=== PATIENT | female | born 1985 | race Hispanic/Latino ===

== ENCOUNTER 2019-09-21 14:02 | Emergency (ER) | payer OTHER, SELFPAY ==
[2019-09-22 12:08] LABS: SARS-CoV-2 MS2 Positive; SARS-CoV-2 N Gene Positive; SARS-CoV-2 S Gene Positive; SARS-CoV-2 orf1ab Positive
== END 2019-09-21 14:30 | disposition home or self-care (01) ==
LOC: ERS 14:02
DX: U07.1 COVID-19 (principal)
CPT/HCPCS: 87635; U0003

== ENCOUNTER 2019-10-14 15:15 | Emergency (ER) | payer SELFPAY ==
[2019-10-14 16:43] LABS: #Eosinphils 0.2 thou/uL (0.0-0.7); #Lymphocytes 1.9 thou/uL (1.20-3.40); #Monocytes 0.4 thou/uL (0.11-0.59); #Neutrophils 4.8 thou/uL (1.40-6.50); %Basophils 0.5 % (0.0-1.0); %Eosinophils 2.2 % (0.0-10.0); %Lymphocytes 26.1 % (21.0-51.0); %Monocytes 5.5 % (0.0-10.0); %Neutrophils 65.8 % (42.0-75.0); Hemoglobin 10.4 g/dL (12.0-16.0); Mean Corpuscular HGB CONC 35.3 g/dL (32.0-36.0); Mean Corpuscular Volume 84.8 fL (78.0-98.0); Mean Platelet Volume 8.9 fL (7.4-10.4); Platelet Count 213 thou/uL (130-400); RBC Distribution Width 13.6 % (11.5-14.5); Red Blood Cell (RBC) Count 3.47 mill/uL (4.20-5.40); White Blood Cell (WBC) Count 7.3 thou/uL (4.8-10.8)
[2019-10-14 17:17] LABS: Albumin 4.5 g/dL (3.5-5.0); Alkaline Phosphatase 63 U/L (40-110); Anion Gap 13 mmol/L (10-20); BUN (Urea Nitrogen) 15 mg/dL (7.0-18.7); Bilirubin, Total 0.5 mg/dL (0.2-1.2); Calc. Creatinine Clearance 0 mL/min (70-130); Calcium 9.3 mg/dL (7.8-10.44); Carbon Dioxide 23 mmol/L (22-29); Chloride 102 mmol/L (98-107); Estimated GFR-MDRD 87; Globulin 6.8 g/dL (2.4-3.5); Glucose 89 mg/dL (70-105); Lipase 138 U/L (8-78); Potassium 3.9 mmol/L (3.5-5.1); Protein, Total 11.3 g/dL (6.0-8.3); Sodium 134 mmol/L (136-145)
[2019-10-14 17:55] LABS: ALT (SGPT) 23 U/L (8-55); AST (SGOT) 25 U/L (5-34)
[2019-10-14] MEDS ORDERED: HYDROcodone/Acetaminophen 5/325 mg Tablet ONE (18:07)
[2019-10-14] MEDS ORDERED: Ketorolac Tromethamine 30 MG/ML VIAL ONE (18:07)
[2019-10-14 18:37] LABS: Bilirubin Negative (Negative); Blood, Urine Large (Negative); Glucose, Urine (Dipstick) Negative (Negative); Ketone, Urine Negative (Negative); Leukocyte Negative (Negative); Nitrite Negative (Negative); Protein, Urine (Dipstick) Negative (Neg-Trace); Specific Gravity, Urine 1.025 (1.005-1.030)
[2019-10-14 18:38] LABS: Clarity Hazy (Clear)
[2019-10-14 18:55] LABS: WBC/HPF 0-3 HPF (0-3)
[2019-10-14 18:56] LABS: Bacteria/HPF None Seen HPF (None Seen); Squamous Epithelial 0-3 HPF (0-3)
--- NOTE | 2019-10-14 19:01 | ULT ---
EXAM: US Gallbladder RUQ CLINICAL HISTORY: Epigastric abdominal pain. Pancreatitis.. COMPARISON: None. FINDINGS: Pancreas: The head and proximal pancreatic body have a normal echotexture Liver:Hepatic parenchyma has a normal echotexture. No hepatic masses or intrahepatic biliary dilatati on. Right hepatic lobe: 15.8 cm Gallbladder: Echogenic material within the lumen of the gallbladder, compatible with sludge. Gallblad zay wall is not thickened. No pericholecystic fluid Gil's sign:Negative Portal Vein: Patent. Appropriate directional flow Bile ducts: 0.5 cm common bile duct diameter Right kidney: No hydronephrosis. Right kidney measures 11.7 cm in length. IMPRESSION: 1. Normal echotexture of the visualized pancreatic parenchyma 2. Sludge within the lumen of the gallbladder. No sonographic evidence of cholecystitis.
[2019-10-14 19:09] LABS: BHCG - Serum Negative (NEGATIVE); Pregs Control Background? CLEAR/WHITE (CLR/WHITE); Pregs Control Bar Appear? YES (CONTROL BAR)
== END 2019-10-14 19:45 | disposition home or self-care (01) ==
LOC: ERS 15:15
DX: R10.13 Epigastric pain (principal); R10.12 Left upper quadrant pain
CPT/HCPCS: 36415; 76705; 80053; 81003; 81015; 83605; 83690; 84703; 85025; 96372; J1885

== ENCOUNTER 2019-10-14 20:12 | Inpatient (IN) | payer OTHER, SELFPAY ==
[~2019-10-14 20:12] MED LIST: Iopamidol-370 76% 500 ML 1 ML ONE
[2019-10-14] MEDS ORDERED: Ondansetron PF 4 MG/2 ML Vial ONE (21:52)
--- NOTE | 2019-10-14 22:07 | CT ---
EXAM: CT ABDOMEN AND PELVIS HISTORY: Left upper quadrant pain. History of pancreatitis. COMPARISON: None. Procedure: Multiple contiguous axial images were obtained and a CT of the abdomen and pelvis with IV contrast. C oronal reformats were performed. FINDINGS: Lower Chest: Minimal peripheral groundglass opacities, nonspecific. Correlate for COVID 19. Calcified granuloma in the left lower lobe. Vessels: Normal caliber aorta Heart: Normal heart size Abdomen: Portal vein:Patent Gallbladder: No calcified gallstones. Normal caliber wall. Liver: Diffuse hypoattenuation suggesting hepatic steatosis. Pancreas: There is mild edematous change about the pancreas with peripancreatic fluid and fat strandi ng. Spleen: within normal limits. Adrenals: within normal limits. Kidneys: Symmetric enhancement. No obstructive uropathy. Peritoneum: Small amount of free fluid in the right paracolic gutter and in the peripancreatic mesent darion. Bowel: Limited evaluation by the lack of oral contrast. Short segment fluid-filled loops of small bow el are identified. Correlate for possible developing ileus. Normal ileocecal junction. Surgically absent appendix. Decompressed colon with fecal material. Occasional diverticulum. No diverticulitis. Mesentery and Retroperitoneum: No enlarged mesenteric or retroperitoneal lymph nodes. Abdominal Wall: within normal limits. Pelvis: Reproductive Organs: Uterus has a normal attenuation in appearance. There are multiple hypodensities in the left and right adnexa. Correlate for hydrosalpinx versus tubo-ovarian abscess. There is fluid in the endometrium. Pelvis: No mass, lymphadenopathy, free air or free fluid. Bladder: No bladder abnormality. Bones: within normal limits. IMPRESSION: 1. Inflammatory changes in the peripancreatic region along with mild edematous change of the pancreat ic parenchyma. Correlate for pancreatitis. 2. Serpiginous hypodensity in the left or right adnexa which may represent hydrosalpinx versus tubo-o varian abscesses. Correlate clinically.
[2019-10-14] MEDS ORDERED: Glycopyrrolate 0.2 MG/ML 5 ML SYRINGE SLOW IVP SCH (22:15)
[2019-10-15] MEDS ORDERED: Morphine 4 MG/ML VIAL ONE ×2 (00:06→04:02)
[2019-10-15] MEDS ORDERED: D5 1/2 NS w/20 mEq KCL 1,000 ML IV PRN (03:18)
[2019-10-15] MEDS ORDERED: HYDROcodone/Acetaminophen 7.5/325 mg Tablet PO PRN (03:18)
[2019-10-15] MEDS ORDERED: Sodium Chloride 0.9% 1,000 ML IV PRN ×4 (03:18)
[2019-10-15] MEDS ORDERED: Calcium Carbonate 500 MG ChewTAB PO PRN (03:18)
[2019-10-15] MEDS ORDERED: Morphine 2 MG/ML VIAL SLOW IVP PRN (03:18)
[2019-10-15] MEDS ORDERED: Electrolyte Replacement Protocol IVPB SCH (03:18)
[2019-10-15] MEDS ORDERED: Acetaminophen 650 MG Suppository PR PRN (03:18)
[2019-10-15] MEDS ORDERED: NS 0.9% w/ 20 MEQ KCL 1,000 ML IV PRN ×2 (03:18)
[2019-10-15] MEDS ORDERED: Dextrose 5 %-0.45 % NaCl 1,000 ML IV PRN (03:18)
[2019-10-15] MEDS ORDERED: Ondansetron ODT 4 MG TAB PO PRN (03:18)
--- NOTE | 2019-10-15 03:23 | PDOC.HHP ---
Hospitalist HPI - History of Present Illness n/v abd pain History of Present Illness: Case of an 34y/o female with pmhx of familial hypertriglycemia who comes to hospital due to nausea / vomiting and abd pain. patient states she was on her usual state of health until today when she started with symptoms and decided to come to hospital for evaluation. she was evaluated in the morning and sent home , comes back again with intractable vomiting nausea and pain, abd ct sent consistent with acute pancreatitis, hospitalist was called for further evaluation and management. patient refers pain is 10/10 constant that radiates to her back Hospitalist ROS - Review of Systems All other systems reviewed; all pertinent +/- noted in HPI/Subj Hospitalist History - Past Surgical History Past Surgical History: reports: Hysterectomy (partial) - Family History Family History: reports: hyperlipidemia - Social History Smoking Status: Never smoker Alcohol: reports: None Drugs: reports: none Living Situation: With Family - Exam General Appearance: ill appearing Eye: PERRL, anicteric sclera ENT: normocephalic atraumatic, no oropharyngeal lesions Neck: supple, symmetric, no JVD Heart: RRR, no murmur, no gallops Respiratory: CTAB, no wheezes, no rales Gastrointestinal: soft, non-distended, normal bowel sounds, tender to palpation Extremities: no cyanosis, no clubbing, no edema Skin: normal turgor, no lesions, no rashes Neurological: cranial nerve grossly intact, normal sensation to touch Musculoskeletal: normal tone, normal strength, no muscle wasting Psychiatric: normal affect, normal behavior, A&O x 3 Hospitalist Results - Radiology Interpretation CT scan - abdomen Additional Comment: acute pancreatitis Hospitalist H&P A/P - Problem (1) Acute pancreatitis Code(s): K85.90 - ACUTE PANCREATITIS WITHOUT NECROSIS OR INFECTION, UNSP Status: Acute (2) Hypertriglyceridemia, familial Code(s): E78.1 - PURE HYPERGLYCERIDEMIA Status: Acute (3) Nausea & vomiting Code(s): R11.2 - NAUSEA WITH VOMITING, UNSPECIFIED Status: Acute (4) Intractable abdominal pain Code(s): R10.9 - UNSPECIFIED ABDOMINAL PAIN Status: Acute - Plan Plan: 34 y/o female with pmhx of familial hypertryglecemia who comes with acute pancreatitis, tryglycerides in the 3k acute pancreatitis - seems to be secondary to triglycerides - get ruq u/s, r/o gallstones - iv hydration - insulin drip to break down triglycerides - pain management - f/u lipid panel in am - pt only on omega 3, would likely benefit from statin, zetia tx at discharge - symptomatic tx for n/v - npo
[2019-10-15] MEDS ORDERED: HUMULIN R 100 UNITS in Sodium Chloride 0.9% 100 ML IVPB SCH (03:30)
[2019-10-15] MEDS: Morphine 4 MG/ML VIAL SLOW IVP PRN ×6 (05:23→17:42)
[2019-10-15] MEDS: Sodium Chloride 0.9% 1,000 ML IV SCH ×4 (05:25→22:00)
[2019-10-15 07:00] LABS: Hemoglobin 11.8 g/dL (12.0-16.0); Mean Corpuscular HGB CONC 37.3 g/dL (32.0-36.0); Mean Corpuscular Volume 83.2 fL (78.0-98.0); Mean Platelet Volume 9.2 fL (7.4-10.4); Platelet Count 157 thou/uL (130-400); Red Blood Cell (RBC) Count 3.79 mill/uL (4.20-5.40); White Blood Cell (WBC) Count 10.3 thou/uL (4.8-10.8)
[2019-10-15 07:04] LABS: Band 13 % (5-11); Lymphocytes 9 % (21-51); MDiff Complete? YES; Monocytes 6 % (0-10); Neutrophil 72 % (42-75); Platelet Morphology Comment Appears Adequate; Polychromasia SLIGHT = 2-3 cells (100X) (0-2/hpf)
[2019-10-15 07:06] LABS: ALT (SGPT) 18 U/L (8-55); AST (SGOT) 26 U/L (5-34); Albumin 3.7 g/dL (3.5-5.0); Alkaline Phosphatase 56 U/L (40-110); Anion Gap 13 mmol/L (10-20); BUN (Urea Nitrogen) 10 mg/dL (7.0-18.7); Bilirubin, Total 0.5 mg/dL (0.2-1.2); Calc. Creatinine Clearance 133 mL/min (70-130); Calcium 7.5 mg/dL (7.8-10.44); Carbon Dioxide 17 mmol/L (22-29); Chloride 104 mmol/L (98-107); Cholesterol 322 mg/dl (< 200 Desired); Estimated GFR-MDRD Greater than 90; Globulin 4.7 g/dL (2.4-3.5); Glucose 154 mg/dL (70-105); HDL Cholesterol 14 mg/dL (>60 Neg Risk); Lipase 331 U/L (8-78); Potassium 3.8 mmol/L (3.5-5.1); Protein, Total 8.4 g/dL (6.0-8.3); Sodium 130 mmol/L (136-145); Triglycerides Greater than 950 mg/dL (Less than 150)
[2019-10-15] MEDS: Enoxaparin Sodium 40 MG/0.4 ML SYRINGE SC SCH (07:35)
[2019-10-15] MEDS: Famotidine/PF 20 mg/2ml Vial SLOW IVP SCH ×3 (07:37→22:00)
--- NOTE | 2019-10-15 08:06 | ULT ---
Exam: Right upper quadrant ultrasound: HISTORY: Pancreatitis. COMPARISON: 10/14/2019 FINDINGS: Liver: Echogenic appearance of the liver suggesting diffuse fatty infiltration. Liver is at the upper limits of normal in size. No focal hepatic lesion is appreciated. Gallbladder: Suggestion of minimal amount of echogenic material in the gallbladder lumen likely due t o small amount of gallbladder sludge. No gallbladder calculus is seen. Common bile duct: The common duct is normal in caliber measuring 0.3 cm in diameter. Pancreas: Limited visualized portions of the pancreas demonstrate a normal sonographic appearance. Right kidney: Right kidney demonstrates a normal sonographic appearance. The right kidney measures 1 1.7 cm in length. IVC: The visualized IVC demonstrates a normal sonographic appearance. Small amount of free fluid is seen adjacent to the pancreatic head. No discrete peripancreatic fluid collection is visualized but portions of the pancreas are obscured due to bowel gas. IMPRESSION: 1. Diffuse fatty infiltration of the liver. 2. Small amount of fluid adjacent to the pancreatic head and adjacent to the right hepatic lobe. 3. Small amount of gallbladder sludge. No gallbladder calculus is seen.
--- NOTE | 2019-10-15 09:40 | CON ---
DATE OF CONSULTATION: 10/15/2019 HISTORY OF PRESENT ILLNESS: This is a 34-year-old female, who presented with abdominal pain. CT of abdomen and ultrasound revealed she had pancreatitis. She apparently had previous history of pancreatitis. Ultrasound also revealed presence of gallstones. PAST MEDICAL HISTORY: Pancreatitis. PAST SURGICAL HISTORY: Hysterectomy. SOCIAL HISTORY: No alcohol or tobacco abuse. Currently, apparently, no home medicine except aspirin. REVIEW OF SYSTEMS: Otherwise, negative. She had a positive Coronavirus 3 weeks ago. PHYSICAL EXAMINATION: VITAL SIGNS: Sats are 90% on room air, blood pressure 100/67, respiratory rate 24, pulse 80. CHEST: No wheezing. No crackles. CARDIAC: Normal S1 and S2. No gallops. ABDOMEN: Soft. LABORATORY DATA: Sodium 130. Lytes are normal. Cholesterol 322, triglycerides 950. She is on insulin drip. The blood sugars are low. DIAGNOSTIC DATA: Abdomen and pelvis CT done earlier, which showed similar findings. Inflammation of the pancreas, pancreatitis. Gallstones. Nonsmoker, nondrinker. Pulmonary multani, repeat Coronavirus test has been ordered. I do not think she needs an insulin drip. Can do Accu-Cheks. Continue slow hydration. Input from GI. TIME SPENT: Consultation note, 70 minutes, 50% direct patient care. Job ID: [id number]
--- NOTE | 2019-10-15 09:43 | RAD ---
EXAM: CHEST ONE VIEW HISTORY: Shortness of breath COMPARISON: None FINDINGS: The cardiac silhouette and pulmonary vasculature is within normal limits. This exam is obtained in a shallow depth inspiration, the lungs are clear. The osseous structures are intact. IMPRESSION: No acute cardiopulmonary process.
[2019-10-15 11:57] LABS: Anion Gap 17 mmol/L (10-20); BUN (Urea Nitrogen) 8 mg/dL (7.0-18.7); Calc. Creatinine Clearance 127 mL/min (70-130); Calcium 7.2 mg/dL (7.8-10.44); Carbon Dioxide 16 mmol/L (22-29); Chloride 103 mmol/L (98-107); Estimated GFR-MDRD Greater than 90; Glucose 115 mg/dL (70-105); Potassium 3.7 mmol/L (3.5-5.1); Sodium 132 mmol/L (136-145)
[2019-10-15 12:27] LABS: SARS-CoV-2 MS2 Positive; SARS-CoV-2 N Gene Positive; SARS-CoV-2 S Gene Negative; SARS-CoV-2 by NAA Indeterminate (NotDetected); SARS-CoV-2 orf1ab Negative
[2019-10-15 17:06] LABS: Glucose 100 mg/dL (70-105)
[2019-10-15] MEDS: Calcium Gluconate 4.6 MEQ in Sodium Chloride 0.9% 100 ML IVPB SCH ×2 (20:03→22:00)
[2019-10-15] MEDS: HYDROcodone/Acetaminophen 5/325 mg Tablet PO PRN (21:14)
[2019-10-15 22:25] LABS: Glucose 101 mg/dL (70-105)
[2019-10-16] MEDS: HYDROcodone/Acetaminophen 5/325 mg Tablet PO PRN ×4 (01:19→22:20)
[2019-10-16] MEDS ORDERED: Calcium Carbonate 500 MG ChewTAB PO SCH (01:30)
[2019-10-16] MEDS ORDERED: Morphine 2 MG/ML VIAL IM SCH (01:30)
[2019-10-16 06:05] LABS: #Eosinphils 0.1 thou/uL (0.0-0.7); #Monocytes 0.5 thou/uL (0.11-0.59); %Basophils 0.2 % (0.0-1.0); %Eosinophils 0.7 % (0.0-10.0); %Lymphocytes 13.2 % (21.0-51.0); %Neutrophils 79.9 % (42.0-75.0); Hemoglobin 10.2 g/dL (12.0-16.0); Mean Corpuscular HGB CONC 32.5 g/dL (32.0-36.0); Mean Corpuscular Volume 86.1 fL (78.0-98.0); Mean Platelet Volume 8.9 fL (7.4-10.4); Platelet Count 123 thou/uL (130-400); RBC Distribution Width 12.9 % (11.5-14.5); Red Blood Cell (RBC) Count 3.66 mill/uL (4.20-5.40); White Blood Cell (WBC) Count 7.5 thou/uL (4.8-10.8)
[2019-10-16 06:21] LABS: Anion Gap 15 mmol/L (10-20); BUN (Urea Nitrogen) 9 mg/dL (7.0-18.7); Calc. Creatinine Clearance 127 mL/min (70-130); Calcium 7.4 mg/dL (7.8-10.44); Carbon Dioxide 16 mmol/L (22-29); Chloride 103 mmol/L (98-107); Estimated GFR-MDRD Greater than 90; Glucose 104 mg/dL (70-105); Lipase 121 U/L (8-78); Sodium 131 mmol/L (136-145)
[2019-10-16] MEDS ORDERED: Potassium Chloride 20 MEQ TAB PO SCH (06:45)
[2019-10-16] MEDS: Sodium Chloride 0.9% 1,000 ML IV SCH ×2 (07:30→17:13)
[2019-10-16] MEDS: HYDROcodone/Acetaminophen 7.5/325 mg Tablet PO PRN (08:24)
[2019-10-16] MEDS: Enoxaparin Sodium 40 MG/0.4 ML SYRINGE SC SCH (08:25)
[2019-10-16] MEDS: Famotidine/PF 20 mg/2ml Vial SLOW IVP SCH ×2 (08:26→20:18)
--- NOTE | 2019-10-16 10:18 | PRG ---
DATE OF SERVICE: 10/16/2019 OBJECTIVE: VITAL SIGNS: Sameera Echols this morning had a temperature of 98, pulse 89, respiratory rate 18, sats 90% on room air, blood pressure 130/74. Chest x-ray yesterday was clear. No respiratory distress. Still abdominal pain. CHEST: No wheezing. No crackles. CARDIAC: Normal S1, S2. No gallops. ABDOMEN: No masses. Pancreatitis. LABORATORY DATA: Lipase 121. Indeterminate serology for Coronavirus. Repeat test is being ordered. IMPRESSION: Pancreatitis, gallstone, positive virus. PLAN: Pulmonary multani, Pulmonary will follow at a distance. She is already out of the ICU. May benefit from input from GI. Job ID: [id number]
[2019-10-16] MEDS: Morphine 4 MG/ML VIAL SLOW IVP PRN ×2 (10:29→15:04)
[2019-10-16 11:40] LABS: SARS-CoV-2 MS2 Positive; SARS-CoV-2 N Gene Positive; SARS-CoV-2 S Gene Positive; SARS-CoV-2 by NAA DETECTED (NotDetected); SARS-CoV-2 orf1ab Positive
[2019-10-16 13:22] LABS: Glucose 87 mg/dL (70-105)
[2019-10-16 18:42] LABS: Glucose 80 mg/dL (70-105)
--- NOTE | 2019-10-16 19:06 | PDOC.HOSPP ---
- Subjective Encounter Date: 10/16/19 Encounter Time: 11:30 Subjective: Pt seen for followup re: acute pancreatitis. Nausea+, abdo pain + - Objective Vital Signs & Weight: Vital Signs (12 hours) Temp Pulse Resp BP Pulse Ox 10/16/19 11:33 97.8 F 84 18 94/57 L 96 Weight Weight 151 lb 0.266 oz Most Recent Monitor Data Heart Rate from ECG 92 NIBP 101/58 NIBP BP-Mean 72 Respiration from ECG 21 SpO2 97 I&O: 10/15/19 10/16/19 10/17/19 06:59 06:59 06:59 Intake Total 940.2 1914 Output Total 500 500 Balance 440.2 1414 Result Diagrams: 10/16/19 05:50 10/16/19 18:13 Additional Labs: Labs and MARs reviewed by nh Hospitalist ROS - Review of Systems Respiratory: denies: cough, shortness of breath, SOB with excertion, pleuritic pain, wheezing Cardiovascular: denies: chest pain, palpitations, orthopnea, paroxysmal noc. dyspnea, edema, light headedness Gastrointestinal: reports: nausea, abdominal pain. denies: vomiting, diarrhea, constipation, melena, hematochezia Genitourinary: denies: dysuria, frequency, incontinence, hematuria, retention Skin: denies: rash, lesions, pastora, bruising - Medication Medications: Active Medications Generic Name Dose Route Start Last Admin Trade Name Freq PRN Reason Stop Dose Admin Hydrocodone Bitart/Acetaminophen 2 tab 10/15/19 03:18 10/16/19 17:13 [place] 5/325 PO 2 tab Q4H PRN Administration Severe Pain (7-10) Hydrocodone Bitart/Acetaminophen 2 tab 10/15/19 03:18 10/16/19 08:24 [place] 7.5/325 PO 2 tab Q4H PRN Administration Severe Pain (7-10) Enoxaparin Sodium 40 mg 10/15/19 09:00 10/16/19 08:25 Lovenox SC 40 mg 0900 SAMMIE Administration Famotidine 20 mg 10/15/19 09:00 10/15/19 22:00 Pepcid SLOW IVP Not Given Q12HR SAMMIE Sodium Chloride 1,000 mls @ 150 mls/hr 10/15/19 03:30 07/29/20 17:13 Normal Saline 0.9% IV 1,000 mls .Q6H40M SAMMIE Administration Morphine Sulfate 4 mg 10/15/19 03:57 10/16/19 15:04 Morphine SLOW IVP 4 mg Q2H PRN Administration Breakthrough Pain Ondansetron HCl 4 mg 10/15/19 03:18 10/15/19 21:14 Zofran Odt PO 4 mg Q6H PRN Administration Nausea/Vomiting Sodium Chloride 10 ml 10/15/19 09:00 10/16/19 08:26 Flush - Normal Saline IVF Not Given Q12HR SAMMIE - Exam General Appearance: awake alert Eye: anicteric sclera ENT: normocephalic atraumatic Neck: supple, symmetric, no thyromegaly, no lymphadenopathy Heart: RRR, no gallops, no rubs Respiratory: CTAB, no wheezes, no rales, no ronchi Gastrointestinal: soft, normal bowel sounds, no guarding, no rigidity, tender to palpation Extremities: no cyanosis Skin: normal turgor Musculoskeletal: no muscle wasting Psychiatric: normal affect, normal behavior, oriented to person, oriented to place Hosp A/P - Plan - Assessment (1) Acute pancreatitis Code(s): K85.90 - ACUTE PANCREATITIS WITHOUT NECROSIS OR INFECTION, UNSP Status: Acute (2) Hypertriglyceridemia, familial Code(s): E78.1 - PURE HYPERGLYCERIDEMIA Status: Acute (3) Nausea & vomiting Code(s): R11.2 - NAUSEA WITH VOMITING, UNSPECIFIED Status: Acute (4) Intractable abdominal pain Code(s): R10.9 - UNSPECIFIED ABDOMINAL PAIN Status: Acute (5) COVID-19 infection Status: Acute - Plan - acute pancreatitis seems to be secondary to hypertriglyceridemia - iv fluids - pain management, add toradol PRN - symptomatic tx for n/v - pt not tolerating oral intake -consult GI - symptomatic management for COVID
[2019-10-16] MEDS: Ketorolac Tromethamine 30 MG/ML VIAL IVP PRN (20:19)
[2019-10-17] MEDS: Sodium Chloride 0.9% 1,000 ML IV SCH ×2 (00:28→08:31)
[2019-10-17] MEDS: Morphine 4 MG/ML VIAL SLOW IVP PRN ×5 (00:29→23:40)
[2019-10-17 00:30] LABS: Glucose 76 mg/dL (70-105)
[2019-10-17] MEDS: Ketorolac Tromethamine 30 MG/ML VIAL IVP PRN ×3 (04:06→23:40)
[2019-10-17 06:10] LABS: #Eosinphils 0.1 thou/uL (0.0-0.7); #Monocytes 0.3 thou/uL (0.11-0.59); #Neutrophils 4.1 thou/uL (1.40-6.50); %Eosinophils 1.1 % (0.0-10.0); %Lymphocytes 18.4 % (21.0-51.0); %Monocytes 6.1 % (0.0-10.0); %Neutrophils 74.4 % (42.0-75.0); Hemoglobin 8.1 g/dL (12.0-16.0); Mean Corpuscular HGB CONC 32.1 g/dL (32.0-36.0); Mean Corpuscular Hemoglobin 27.8 pg (27.0-31.0); Mean Corpuscular Volume 86.7 fL (78.0-98.0); Mean Platelet Volume 8.6 fL (7.4-10.4); Platelet Count 131 thou/uL (130-400); RBC Distribution Width 12.9 % (11.5-14.5); Red Blood Cell (RBC) Count 2.91 mill/uL (4.20-5.40); White Blood Cell (WBC) Count 5.6 thou/uL (4.8-10.8)
[2019-10-17 06:29] LABS: Anion Gap 12 mmol/L (10-20); BUN (Urea Nitrogen) 7 mg/dL (7.0-18.7); Calc. Creatinine Clearance 153 mL/min (70-130); Calcium 7.6 mg/dL (7.8-10.44); Carbon Dioxide 18 mmol/L (22-29); Chloride 108 mmol/L (98-107); Estimated GFR-MDRD Greater than 90; Glucose 71 mg/dL (70-105); Lipase 46 U/L (8-78); Potassium 3.2 mmol/L (3.5-5.1); Sodium 135 mmol/L (136-145)
[2019-10-17] MEDS ORDERED: Potassium Chloride 20 MEQ TAB PO SCH (07:45)
[2019-10-17] MEDS: Enoxaparin Sodium 40 MG/0.4 ML SYRINGE SC SCH (08:32)
[2019-10-17] MEDS: Famotidine/PF 20 mg/2ml Vial SLOW IVP SCH ×2 (08:33→20:52)
[2019-10-17] MEDS ORDERED: CCU Insulin Drip FS ONE (11:55)
[2019-10-17] MEDS: HYDROcodone/Acetaminophen 5/325 mg Tablet PO PRN ×2 (12:14→19:25)
[2019-10-17] MEDS ORDERED: HUMULIN R 100 UNITS in Sodium Chloride 0.9% 100 ML IVPB SCH (12:15)
[2019-10-17 12:17] LABS: Glucose 67 mg/dL (70-105)
[2019-10-17] MEDS: Dextrose 5 % And 0.9 % NaCl 1,000 ML IV SCH ×3 (12:29→23:40)
--- NOTE | 2019-10-17 12:57 | CON ---
DATE OF CONSULTATION: 10/17/2019 REQUESTING PHYSICIAN: Rodolfo Birmingham MD REASON FOR CONSULTATION: Pancreatitis. HISTORY OF PRESENT ILLNESS: Sameera Echols is a 34-year-old woman, who speaks [place] only. She was admitted to the hospital a couple of days ago with acute recurrent pancreatitis. She tells me she has had 3 or 4 episodes of pancreatitis in the past. The last one would have been 8 or 9 months ago. She has been hospitalized for several days each time. She reports that she does not have diabetes, but has been diagnosed with hypertriglyceridemia, which is evidently familial. She takes fish oil and aspirin at home, but no other medicines. No other lipid therapy. She has no chronic gastrointestinal complaints, but she presented to the hospital a few days ago with several days of worsening pain in the epigastrium radiating to the back, associated with nausea and several episodes of vomiting. Bowel movements have slowed down, but have been nonbloody. She does not have any cough. She has not had any fever. She does say that when she takes a deep breath, she will have some pain in her chest. Upon admission, she was found to have elevated lipase to 331 and triglycerides above the assay limit. Repeat triglyceride assay was . It appears she was briefly on an insulin drip, but this was discontinued and she was sent to the floor. She has remained n.p.o. She has had persistent epigastric pain and back pain symptoms, which have not really improved over the past couple of days. Other laboratory studies remain favorable. Lipase has gone down to 46. LFTs normal. She has been appropriately resuscitated with IV fluid. REVIEW OF SYSTEMS: Full review of systems including constitutional, head, eyes, ears, nose, throat, GI, , cardiovascular, respiratory, musculoskeletal, and neurologic systems is negative except as noted in the HPI. PAST MEDICAL HISTORY: Familial hypertriglyceridemia, recurrent pancreatitis, and partial hysterectomy. SOCIAL HISTORY: No smoking, alcohol, or drug use. FAMILY HISTORY: Evidently includes familial hypertriglyceridemia. PHYSICAL EXAMINATION: VITAL SIGNS: Temperature 97.7, pulse 86, blood pressure 106/66, oxygen saturation 96% on room air. GENERAL: A 34-year-old woman, lying in bed, in mild distress from abdominal discomfort. Pleasant and conversational. SKIN: No jaundice. No rashes were palpable. EYES: No scleral icterus. Extraocular movements intact. ENT: Mucous membranes moist. No oral lesions. LYMPH: No submandibular or supraclavicular lymphadenopathy. THYROID: Nontender to palpation. HEART: Regular rate and rhythm. LUNGS: Clear to auscultation bilaterally. ABDOMEN: Bowel sounds are hypoactive. The abdomen is soft, tender to palpation throughout the abdomen, but no guarding or rebound tenderness. EXTREMITIES: No peripheral edema. VESSELS: Radial pulses 2+ bilaterally. NEURO: Cranial nerves II through XII intact bilaterally. No focal deficits. LABORATORY STUDIES: Triglycerides . No new value over the past 2 days. Lipase initially 331, now 46. LFTs normal with total bilirubin 0.5, alkaline phosphatase 56, AST 26, ALT 18, and albumin 3.7. COVID PCR was initially indeterminate and repeat COVID PCR was positive. Sodium 135, potassium 3.2, BUN 7, creatinine 0.55. Hemoglobin initially 11.8, with aggressive IV fluids, now down to 8.1; WBC is 5.6; and platelets 131. IMAGING STUDIES: On 10/14/2019, CT of the abdomen and pelvis demonstrated some peripheral ground-glass opacities in bilateral lung jim. There is mild pancreatic edema and peripancreatic fluid and stranding. Fatty liver. Also, an indeterminate adnexal hypodensity. Chest x-ray showed no acute processes. Abdominal ultrasound shows small amount of gallbladder sludge, but normal common bile duct of 3 mm. ASSESSMENT AND PLAN: 1. Acute recurrent pancreatitis, appears secondary to hypertriglyceridemia. 2. Hypertriglyceridemia, familial. The patient's laboratory parameters and imaging findings are favorable. She has been receiving appropriate IV fluid resuscitation and n.p.o. status. However, standard treatment for hypertriglyceridemia-induced pancreatitis would include an insulin drip, close monitoring of triglyceride levels until they are below 500. I have spoken to Dr. Birmingham, and the plan will be to transfer her back to the [facility] for this purpose. Hopefully, with the insulin drip, we will start to see improvement in her symptoms as well. After lowering of the triglycerides to less than 500 has been achieved, the patient is going to need to be on maintenance lipid-lowering therapy with a goal triglyceride level under 200 in order to try to prevent recurrent episodes of pancreatitis. For now, continue the n.p.o. status and IV fluids, p.r.n. pain and nausea control. GI will follow along. Thank you for the consultation. Job ID: [id number]
[2019-10-17] MEDS ORDERED: Dextrose 50% Abboject 50 ML SYRINGE SLOW IVP SCH (15:00)
[2019-10-17] MEDS ORDERED: Insulin Regular 300 UNITS/3 ML VIAL IVP SCH (15:00)
--- NOTE | 2019-10-17 18:20 | PDOC.HOSPP ---
- Subjective Encounter Date: 10/17/19 Encounter Time: 18:20 Subjective: Patient was seen for follow-up regarding acute pancreatitis. Reports improvement in pain, 5 out of 10 currently. Reports nausea earlier today. Denies any chest pain. - Objective Vital Signs & Weight: Vital Signs (12 hours) Temp Pulse Resp BP Pulse Ox 10/17/19 16:41 98.2 F 73 18 116/72 97 10/17/19 12:21 98.1 F 86 18 122/75 97 10/17/19 08:46 97.7 F 86 18 106/66 96 10/17/19 08:00 96 Weight Weight 151 lb 0.266 oz Most Recent Monitor Data Heart Rate from ECG 92 NIBP 101/58 NIBP BP-Mean 72 Respiration from ECG 21 SpO2 97 I&O: 10/16/19 10/17/19 10/18/19 06:59 06:59 06:59 Intake Total 1914 1670 Output Total 500 Balance 1414 1670 Result Diagrams: 10/17/19 05:49 10/17/19 11:50 Additional Labs: Accuchecks 10/17/19 16:31 POC Glucose 72 Labs and MAR were reviewed by me. Hospitalist ROS - Review of Systems Constitutional: denies: fever, chills, sweats, weakness, malaise Cardiovascular: denies: chest pain, palpitations, orthopnea, paroxysmal noc. dyspnea, edema, light headedness Gastrointestinal: reports: nausea, abdominal pain. denies: vomiting, diarrhea, constipation, melena, hematochezia Genitourinary: denies: dysuria, frequency, incontinence, hematuria, retention Musculoskeletal: denies: neck pain, shoulder pain, arm pain, back pain, hand pain, leg pain, foot pain Skin: denies: rash, lesions, pastora, bruising - Medication Medications: Active Medications Generic Name Dose Route Start Last Admin Trade Name Freq PRN Reason Stop Dose Admin Hydrocodone Bitart/Acetaminophen 2 tab 10/15/19 03:18 10/17/19 12:14 [place] 5/325 PO 2 tab Q4H PRN Administration Severe Pain (7-10) Hydrocodone Bitart/Acetaminophen 2 tab 10/15/19 03:18 10/16/19 08:24 [place] 7.5/325 PO 2 tab Q4H PRN Administration Severe Pain (7-10) Enoxaparin Sodium 40 mg 10/15/19 09:00 10/17/19 08:32 Lovenox SC 40 mg 0900 SAMMIE Administration Famotidine 20 mg 10/15/19 09:00 10/17/19 08:33 Pepcid SLOW IVP 20 mg Q12HR SAMMIE Administration Dextrose/Sodium Chloride 1,000 mls @ 100 mls/hr 10/17/19 12:00 10/17/19 12:29 D5 0.9% Ns IV 1,000 mls .Q10H SAMMIE Administration Ketorolac Tromethamine 15 mg 10/16/19 18:58 10/17/19 14:55 Toradol IVP 10/21/19 18:59 15 mg Q6H PRN Administration Pain Morphine Sulfate 4 mg 10/15/19 03:57 10/17/19 14:55 Morphine SLOW IVP 4 mg Q2H PRN Administration Breakthrough Pain Ondansetron HCl 4 mg 10/15/19 03:18 10/15/19 21:14 Zofran Odt PO 4 mg Q6H PRN Administration Nausea/Vomiting Sodium Chloride 10 ml 10/15/19 09:00 10/17/19 08:33 Flush - Normal Saline IVF 10 ml Q12HR SAMMIE Administration - Exam General Appearance: awake alert Eye: anicteric sclera ENT: moist mucosa Neck: supple, symmetric, no thyromegaly, no lymphadenopathy Heart: RRR, no murmur, no rubs, normal peripheral pulses Respiratory: CTAB, no wheezes, no rales, no ronchi, normal chest expansion, no tachypnea Gastrointestinal: soft, normal bowel sounds, no bruit, no guarding, no rigidity , tender to palpation Psychiatric: normal affect, normal behavior, oriented to person, oriented to place Hosp A/P - Plan out of bed/ambulate - Assessment (1) Acute pancreatitis Code(s): K85.90 - ACUTE PANCREATITIS WITHOUT NECROSIS OR INFECTION, UNSP Status: Acute (2) Hypertriglyceridemia, familial Code(s): E78.1 - PURE HYPERGLYCERIDEMIA Status: Acute (3) Nausea & vomiting Code(s): R11.2 - NAUSEA WITH VOMITING, UNSPECIFIED Status: Acute (4) Intractable abdominal pain Code(s): R10.9 - UNSPECIFIED ABDOMINAL PAIN Status: Acute (5) COVID-19 infection Status: Acute - Plan - acute pancreatitis secondary to hypertriglyceridemia -Triglycerides have improved to 611. Will administer intravenous insulin along with D5 NS and recheck triglycerides. Target below 500. -Nausea has improved. Abdominal pain appears to have improved as well. Lipase has normalized. - iv fluids - pain medications - symptomatic tx for n/v - pt not tolerating oral intake - h/o COVID - replace potassium
[2019-10-17 18:49] LABS: Glucose 80 mg/dL (70-105)
[2019-10-17 23:26] LABS: Glucose 88 mg/dL (70-105)
[2019-10-18] MEDS ORDERED: Insulin Regular 300 UNITS/3 ML VIAL IVP SCH ×3 (00:30→19:15)
[2019-10-18] MEDS ORDERED: Dextrose 50% Abboject 50 ML SYRINGE SLOW IVP SCH ×3 (00:30→19:15)
[2019-10-18 02:29] LABS: #Eosinphils 0.1 thou/uL (0.0-0.7); #Lymphocytes 1.1 thou/uL (1.20-3.40); #Monocytes 0.3 thou/uL (0.11-0.59); #Neutrophils 2.9 thou/uL (1.40-6.50); %Basophils 0.6 % (0.0-1.0); %Eosinophils 2.6 % (0.0-10.0); %Lymphocytes 25.1 % (21.0-51.0); %Monocytes 7.4 % (0.0-10.0); %Neutrophils 64.3 % (42.0-75.0); Hemoglobin 8.3 g/dL (12.0-16.0); Mean Corpuscular HGB CONC 32.9 g/dL (32.0-36.0); Mean Corpuscular Hemoglobin 28.5 pg (27.0-31.0); Mean Corpuscular Volume 86.6 fL (78.0-98.0); Mean Platelet Volume 7.7 fL (7.4-10.4); Platelet Count 151 thou/uL (130-400); RBC Distribution Width 12.8 % (11.5-14.5); Red Blood Cell (RBC) Count 2.91 mill/uL (4.20-5.40); White Blood Cell (WBC) Count 4.4 thou/uL (4.8-10.8)
[2019-10-18 03:07] LABS: Anion Gap 11 mmol/L (10-20); BUN (Urea Nitrogen) 5 mg/dL (7.0-18.7); Calc. Creatinine Clearance 153 mL/min (70-130); Calcium 7.9 mg/dL (7.8-10.44); Carbon Dioxide 19 mmol/L (22-29); Chloride 109 mmol/L (98-107); Estimated GFR-MDRD Greater than 90; Glucose 126 mg/dL (70-105); Lipase 45 U/L (8-78); Sodium 136 mmol/L (136-145)
[2019-10-18 03:17] LABS: Potassium 2.9 mmol/L (3.5-5.1)
[2019-10-18] MEDS: Potassium Chloride 20 MEQ in Premix Bag 1 BAG IVPB SCH ×2 (05:02→08:11)
[2019-10-18] MEDS: HYDROcodone/Acetaminophen 5/325 mg Tablet PO PRN ×2 (05:02→22:02)
[2019-10-18 07:15] LABS: Glucose 83 mg/dL (70-105)
[2019-10-18] MEDS: Famotidine/PF 20 mg/2ml Vial SLOW IVP SCH ×2 (08:11→22:03)
[2019-10-18] MEDS: Enoxaparin Sodium 40 MG/0.4 ML SYRINGE SC SCH (08:11)
[2019-10-18] MEDS: Ketorolac Tromethamine 30 MG/ML VIAL IVP PRN (08:14)
[2019-10-18] MEDS: Morphine 4 MG/ML VIAL SLOW IVP PRN (08:15)
[2019-10-18] MEDS ORDERED: Potassium Chloride 20 MEQ TAB PO SCH (11:00)
--- NOTE | 2019-10-18 11:58 | PRG ---
DATE OF SERVICE: 10/18/2019 SUBJECTIVE: Ms. Echols says she is doing a lot better today. She is no longer having any back pain or neck pain. She does have persistence of pain in the epigastrium, which is worse upon deep inspiration. There is some mild nausea, but no vomiting. She is tolerating clear liquids this morning, had some apple juice without much difficulty. Still says abdominal pain is at a 4 or 5/10 in intensity. Triglycerides came down by this morning after some insulin administration. Lipase normalized yesterday. OBJECTIVE: VITAL SIGNS: Temperature 98.2, pulse 73, blood pressure 116/72, and 97% oxygen saturation on room air. GENERAL: No acute distress. HEART: Regular rate and rhythm. LUNGS: Clear to auscultation bilaterally. ABDOMEN: Soft. Bowel sounds present. Some mild tenderness to palpation in the epigastrium. EXTREMITIES: No peripheral edema. LABORATORY STUDIES: Sodium 136, potassium 2.9, BUN 5, creatinine 0.55, glucose 83, calcium 7.9, triglycerides 461. Lipase 45. WBC 4.4, hemoglobin 8.3, and platelets 151. ASSESSMENT AND PLAN: Hypertriglyceridemia-induced pancreatitis, acute, recurrent. The patient is clinically improving. Laboratory parameters all remain favorable. Lipase is normalized. Triglycerides are now down to 461 after insulin administration. The patient will need to be on lipid-lowering therapy going forward with a goal triglycerides less than 200 in order to try to avoid recurrent episodes. Regarding this current attack, clear liquids have been started today. I advised the patient to see how she does, possibly advance diet further later today depending on her symptoms. If pain is worsening with oral intake, I advised her to back off temporarily. Hopefully, she will be able to be discharged within the next day or two. Job ID: [id number]
[2019-10-18 12:19] LABS: Glucose 162 mg/dL (70-105)
[2019-10-18] MEDS ORDERED: Fenofibrate Nanocrystallized 145 MG TAB PO SCH (13:45)
[2019-10-18 15:31] LABS: Glucose 76 mg/dL (70-105)
[2019-10-18] MEDS: Dextrose 5 % And 0.9 % NaCl 1,000 ML IV SCH (17:17)
--- NOTE | 2019-10-18 19:10 | PDOC.HOSPP ---
- Subjective Encounter Date: 10/18/19 Encounter Time: 19:04 Subjective: Patient was seen for follow-up for acute pancreatitis. Reports nausea is better , abdominal pain is better. Still not tolerating diet well. - Objective Vital Signs & Weight: Weight Weight 151 lb 0.266 oz Most Recent Monitor Data Heart Rate from ECG 92 NIBP 101/58 NIBP BP-Mean 72 Respiration from ECG 21 SpO2 97 I&O: 10/17/19 10/18/19 10/19/19 06:59 06:59 06:59 Intake Total 1670 Balance 1670 Result Diagrams: 10/18/19 02:18 10/18/19 15:06 Additional Labs: Labs and MAR were reviewed by me. Hospitalist ROS - Review of Systems Gastrointestinal: reports: abdominal pain. denies: nausea, vomiting, diarrhea, constipation, melena, hematochezia Genitourinary: denies: dysuria, frequency, incontinence, hematuria, retention - Medication Medications: Active Medications Generic Name Dose Route Start Last Admin Trade Name Freq PRN Reason Stop Dose Admin Hydrocodone Bitart/Acetaminophen 2 tab 10/15/19 03:18 10/18/19 05:02 [place] 5/325 PO 2 tab Q4H PRN Administration Severe Pain (7-10) Hydrocodone Bitart/Acetaminophen 2 tab 10/15/19 03:18 10/16/19 08:24 [place] 7.5/325 PO 2 tab Q4H PRN Administration Severe Pain (7-10) Enoxaparin Sodium 40 mg 10/15/19 09:00 10/18/19 08:11 Lovenox SC 40 mg 0900 SAMMIE Administration Famotidine 20 mg 10/15/19 09:00 10/18/19 08:11 Pepcid SLOW IVP 20 mg Q12HR SAMMIE Administration Dextrose/Sodium Chloride 1,000 mls @ 100 mls/hr 10/17/19 12:00 10/18/19 17:17 D5 0.9% Ns IV 1,000 mls .Q10H SAMMIE Administration Ketorolac Tromethamine 15 mg 10/16/19 18:58 10/18/19 08:14 Toradol IVP 10/21/19 18:59 15 mg Q6H PRN Administration Pain Morphine Sulfate 4 mg 10/15/19 03:57 10/18/19 08:15 Morphine SLOW IVP 4 mg Q2H PRN Administration Breakthrough Pain Ondansetron HCl 4 mg 10/15/19 03:18 10/15/19 21:14 Zofran Odt PO 4 mg Q6H PRN Administration Nausea/Vomiting Sodium Chloride 10 ml 10/15/19 09:00 10/18/19 08:12 Flush - Normal Saline IVF 10 ml Q12HR SAMMIE Administration - Exam General Appearance: awake alert Eye: anicteric sclera ENT: moist mucosa Neck: supple Heart: RRR Respiratory: CTAB Gastrointestinal: soft, no guarding, no rigidity, tender to palpation Extremities: no cyanosis Psychiatric: normal affect, normal behavior Hosp A/P - Plan - Assessment (1) Acute pancreatitis Code(s): K85.90 - ACUTE PANCREATITIS WITHOUT NECROSIS OR INFECTION, UNSP Status: Acute (2) Hypertriglyceridemia, familial Code(s): E78.1 - PURE HYPERGLYCERIDEMIA Status: Acute (3) Nausea & vomiting Code(s): R11.2 - NAUSEA WITH VOMITING, UNSPECIFIED Status: Acute (4) Intractable abdominal pain Code(s): R10.9 - UNSPECIFIED ABDOMINAL PAIN Status: Acute (5) COVID-19 infection Status: Acute - Plan - acute pancreatitis secondary to hypertriglyceridemia, improving -Triglycerides have improved to 461. Patient received intravenous insulin along with D5 NS. Will repeat this treatment. -Nausea has improved. Abdominal pain appears to have improved as well. Lipase has normalized. - iv fluids - pain medications - pt not tolerating oral intake - h/o COVID -Start TriCor and statin. -Likely home 24 to 48 hours.
[2019-10-18] MEDS: Atorvastatin Calcium 40 MG TAB PO SCH (22:03)
[2019-10-19] MEDS: Dextrose 5 % And 0.9 % NaCl 1,000 ML IV SCH ×3 (04:21→21:18)
[2019-10-19 06:39] LABS: Anion Gap 10 mmol/L (10-20); BUN (Urea Nitrogen) 4 mg/dL (7.0-18.7); Calc. Creatinine Clearance 138 mL/min (70-130); Calcium 8.6 mg/dL (7.8-10.44); Carbon Dioxide 25 mmol/L (22-29); Chloride 108 mmol/L (98-107); Estimated GFR-MDRD Greater than 90; Glucose 101 mg/dL (70-105); Potassium 3.6 mmol/L (3.5-5.1); Sodium 139 mmol/L (136-145); Triglycerides 565 mg/dL (Less than 150)
[2019-10-19] MEDS ORDERED: Insulin Regular 300 UNITS/3 ML VIAL IVP SCH (08:00)
[2019-10-19] MEDS ORDERED: Dextrose 50% Abboject 50 ML SYRINGE SLOW IVP SCH (09:00)
[2019-10-19] MEDS: Enoxaparin Sodium 40 MG/0.4 ML SYRINGE SC SCH (09:37)
[2019-10-19] MEDS: Fenofibrate Nanocrystallized 145 MG TAB PO SCH (09:38)
[2019-10-19] MEDS: Famotidine/PF 20 mg/2ml Vial SLOW IVP SCH ×2 (09:38→21:18)
[2019-10-19] MEDS: HYDROcodone/Acetaminophen 7.5/325 mg Tablet PO PRN ×2 (09:38→18:38)
[2019-10-19] MEDS ORDERED: Bisacodyl 5 MG TAB PO PRN (10:15)
[2019-10-19] MEDS ORDERED: Bisacodyl 5 MG TAB PO SCH (10:30)
--- NOTE | 2019-10-19 10:33 | PRG ---
DATE OF SERVICE: 10/19/2019 SUBJECTIVE: Ms. Echols says her pain is about the same as yesterday. There is no nausea and she has not vomited. It has been five or six days since her last bowel movement, however. She really did not eat much for breakfast, said that cereal made her abdominal pain worse. She was hoping to go home today, but she required hydrocodone this morning. OBJECTIVE: VITAL SIGNS: Temperature 99, pulse 65, blood pressure 130/84, 100% oxygen saturation on room air. GENERAL: No acute distress. HEART: Regular rate and rhythm. LUNGS: Clear to auscultation bilaterally. ABDOMEN: Bowel sounds hypoactive, but present. Soft and some tenderness to palpation in the epigastrium. No guarding or rebound tenderness. EXTREMITIES: No peripheral edema. LABORATORY STUDIES: Sodium 139, potassium 3.6, BUN 4, creatinine 0.61. Triglycerides now spike up to 565. Lipase was 45 yesterday. WBC 4.4, hemoglobin 8.3, platelets 151. ASSESSMENT AND PLAN: 1. Hypertriglyceridemia-induced pancreatitis. 2. Epigastric pain, persistent. 3. Constipation, likely secondary to mild ileus from pancreatitis as well as opioid administration here. Laboratory studies all remained favorable and she has remained clinically stable, but yet complains of persistent postprandial pain and really not tolerating her diet. I think unfortunately we are going to need to back off the diet back to full liquids today and see how she does. We will also give her some MiraLAX and Dulcolax to try to stimulate a bowel movement. Job ID: [id number]
--- NOTE | 2019-10-19 15:46 | PDOC.HOSPP ---
- Subjective Encounter Date: 10/19/19 Encounter Time: 11:00 Subjective: Patient was seen for follow-up for acute pancreatitis. She reports pain over the epigastrium and right upper quadrant. She denies any fevers. Reports minimal oral intake. Her epigastric pain is also radiating to the back. - Objective Vital Signs & Weight: Vital Signs (12 hours) Temp Pulse Resp BP Pulse Ox 10/19/19 08:35 99.0 F 67 18 128/82 100 10/19/19 08:00 100 Weight Weight 151 lb 0.266 oz Most Recent Monitor Data Heart Rate from ECG 92 NIBP 101/58 NIBP BP-Mean 72 Respiration from ECG 21 SpO2 97 I&O: 10/18/19 10/19/19 10/20/19 06:59 06:59 06:59 Intake Total 1670 Balance 1670 Result Diagrams: 10/18/19 02:18 10/19/19 06:03 Additional Labs: Labs and MAR were reviewed by me. Hospitalist ROS - Review of Systems Constitutional: denies: fever, chills, sweats, weakness, malaise Gastrointestinal: reports: nausea, abdominal pain. denies: vomiting, diarrhea, constipation, melena, hematochezia - Medication Medications: Active Medications Generic Name Dose Route Start Last Admin Trade Name Freq PRN Reason Stop Dose Admin Hydrocodone Bitart/Acetaminophen 2 tab 10/15/19 03:18 10/18/19 22:02 [place] 5/325 PO 2 tab Q4H PRN Administration Severe Pain (7-10) Hydrocodone Bitart/Acetaminophen 2 tab 10/15/19 03:18 10/19/19 09:38 [place] 7.5/325 PO 2 tab Q4H PRN Administration Severe Pain (7-10) Atorvastatin Calcium 40 mg 10/18/19 21:00 10/18/19 22:03 Lipitor PO 40 mg HS SAMMIE Administration Enoxaparin Sodium 40 mg 10/15/19 09:00 10/19/19 09:37 Lovenox SC 40 mg 0900 SAMMIE Administration Famotidine 20 mg 10/15/19 09:00 10/19/19 09:38 Pepcid SLOW IVP 20 mg Q12HR SAMMIE Administration Fenofibrate 145 mg 10/19/19 09:00 10/19/19 09:38 Tricor PO 145 mg DAILY SAMMIE Administration Dextrose/Sodium Chloride 1,000 mls @ 100 mls/hr 10/17/19 12:00 10/19/19 13:14 D5 0.9% Ns IV 1,000 mls .Q10H SAMMIE Administration Ketorolac Tromethamine 15 mg 10/16/19 18:58 10/18/19 08:14 Toradol IVP 10/21/19 18:59 15 mg Q6H PRN Administration Pain Morphine Sulfate 4 mg 10/15/19 03:57 10/18/19 08:15 Morphine SLOW IVP 4 mg Q2H PRN Administration Breakthrough Pain Ondansetron HCl 4 mg 10/15/19 03:18 10/15/19 21:14 Zofran Odt PO 4 mg Q6H PRN Administration Nausea/Vomiting Sodium Chloride 10 ml 10/15/19 09:00 10/19/19 09:38 Flush - Normal Saline IVF 10 ml Q12HR SAMMIE Administration - Exam General Appearance: awake alert Eye: anicteric sclera ENT: moist mucosa Neck: supple Heart: RRR Respiratory: CTAB Gastrointestinal: soft, normal bowel sounds, no guarding, no rigidity, tender to palpation Extremities: no cyanosis Psychiatric: normal affect, normal behavior Hosp A/P - Plan - Assessment (1) Acute pancreatitis Code(s): K85.90 - ACUTE PANCREATITIS WITHOUT NECROSIS OR INFECTION, UNSP Status: Acute (2) Hypertriglyceridemia, familial Code(s): E78.1 - PURE HYPERGLYCERIDEMIA Status: Acute (3) Nausea & vomiting Code(s): R11.2 - NAUSEA WITH VOMITING, UNSPECIFIED Status: Acute (4) Intractable abdominal pain Code(s): R10.9 - UNSPECIFIED ABDOMINAL PAIN Status: Acute (5) COVID-19 infection Status: Acute - Plan - acute pancreatitis secondary to hypertriglyceridemia, slowly improving -Triglycerides worse today. Repeat intravenous insulin followed by dextrose and check triglyceride level in the morning. Continue TriCor and statin. -Nausea has improved. Abdominal pain appears to have improved as well. Lipase has normalized. -Continue iv fluids -Continue pain medications - h/o COVID -Start TriCor and statin. -Likely home 24 to 48 hours once oral intake improves.
[2019-10-19] MEDS: Ondansetron PF 4 MG/2 ML Vial IVP PRN (18:39)
[2019-10-19] MEDS: Atorvastatin Calcium 40 MG TAB PO SCH (21:18)
[2019-10-19] MEDS: Morphine 4 MG/ML VIAL SLOW IVP PRN (21:39)
[2019-10-20] MEDS: HYDROcodone/Acetaminophen 7.5/325 mg Tablet PO PRN ×3 (01:01→20:38)
[2019-10-20] MEDS: Ondansetron PF 4 MG/2 ML Vial IVP PRN (01:01)
[2019-10-20 07:12] LABS: Anion Gap 9 mmol/L (10-20); BUN (Urea Nitrogen) 5 mg/dL (7.0-18.7); Calc. Creatinine Clearance 129 mL/min (70-130); Calcium 8.3 mg/dL (7.8-10.44); Carbon Dioxide 27 mmol/L (22-29); Chloride 107 mmol/L (98-107); Estimated GFR-MDRD Greater than 90; Glucose 100 mg/dL (70-105); Potassium 3.5 mmol/L (3.5-5.1); Sodium 139 mmol/L (136-145); Triglycerides 541 mg/dL (Less than 150)
[2019-10-20] MEDS: Famotidine/PF 20 mg/2ml Vial SLOW IVP SCH ×2 (08:58→20:33)
[2019-10-20] MEDS: Polyethylene Glycol 3350 17 GM Packet PO SCH (08:58)
[2019-10-20] MEDS: Enoxaparin Sodium 40 MG/0.4 ML SYRINGE SC SCH (08:58)
[2019-10-20] MEDS: Fenofibrate Nanocrystallized 145 MG TAB PO SCH (08:58)
[2019-10-20] MEDS ORDERED: Electrolyte Replacement Protocol FS PRN (09:15)
[2019-10-20] MEDS ORDERED: Potassium Chloride 20 MEQ TAB PO SCH (09:30)
[2019-10-20] MEDS: Dextrose 5 % And 0.9 % NaCl 1,000 ML IV SCH ×4 (12:54→23:05)
[2019-10-20] MEDS: HYDROcodone/Acetaminophen 5/325 mg Tablet PO PRN (13:02)
--- NOTE | 2019-10-20 13:29 | PDOC.HOSPP ---
- Subjective Encounter Date: 10/20/19 Encounter Time: 12:00 Subjective: Follow up : pancreatitis Patient states that yesterday she had a lot of vomiting and she vomited yellow fluid. She also stated that she vomited up some blood as well. Today she had some clear liquids but still had some nausea so didn't have much. She reports dizziness while ambulating. She has not had a BM yet The patient states she has no cough, but does state that she has some chest pain when she takes a deep breath. No SOB otherwise. She is not on oxygen - Objective Vital Signs & Weight: Vital Signs (12 hours) Temp Pulse Resp BP Pulse Ox 10/20/19 09:00 97.8 F 58 L 18 129/80 95 Weight Weight 151 lb 0.266 oz Most Recent Monitor Data Heart Rate from ECG 92 NIBP 101/58 NIBP BP-Mean 72 Respiration from ECG 21 SpO2 97 I&O: 10/19/19 10/20/19 10/21/19 06:59 06:59 06:59 Intake Total 1920 Balance 1920 Result Diagrams: 10/18/19 02:18 10/20/19 06:20 Additional Labs: Accuchecks 10/20/19 13:02 POC Glucose 103 Hospitalist ROS - Review of Systems Constitutional: denies: fever, chills - Medication Medications: Active Medications Generic Name Dose Route Start Last Admin Trade Name Freq PRN Reason Stop Dose Admin Hydrocodone Bitart/Acetaminophen 1 tab 10/15/19 03:18 10/20/19 13:02 [place] 5/325 PO 1 tab Q4H PRN Administration Moderate Pain (4-6) Hydrocodone Bitart/Acetaminophen 2 tab 10/15/19 03:18 10/18/19 22:02 [place] 5/325 PO 2 tab Q4H PRN Administration Severe Pain (7-10) Hydrocodone Bitart/Acetaminophen 2 tab 10/15/19 03:18 10/20/19 06:13 [place] 7.5/325 PO 2 tab Q4H PRN Administration Severe Pain (7-10) Atorvastatin Calcium 40 mg 10/18/19 21:00 10/19/19 21:18 Lipitor PO 40 mg HS SAMMIE Administration Enoxaparin Sodium 40 mg 10/15/19 09:00 10/20/19 08:58 Lovenox SC 40 mg 0900 SAMMIE Administration Famotidine 20 mg 10/15/19 09:00 10/20/19 08:58 Pepcid SLOW IVP 20 mg Q12HR SAMMIE Administration Fenofibrate 145 mg 10/19/19 09:00 10/20/19 08:58 Tricor PO 145 mg DAILY SAMMIE Administration Dextrose/Sodium Chloride 1,000 mls @ 100 mls/hr 10/17/19 12:00 10/20/19 12:54 D5 0.9% Ns IV 1,000 mls .Q10H SAMMIE Administration Ketorolac Tromethamine 15 mg 10/16/19 18:58 10/18/19 08:14 Toradol IVP 10/21/19 18:59 15 mg Q6H PRN Administration Pain Morphine Sulfate 4 mg 10/15/19 03:57 10/19/19 21:39 Morphine SLOW IVP 4 mg Q2H PRN Administration Breakthrough Pain Ondansetron HCl 4 mg 10/15/19 03:18 10/15/19 21:14 Zofran Odt PO 4 mg Q6H PRN Administration Nausea/Vomiting Ondansetron HCl 4 mg 10/15/19 03:18 10/20/19 01:01 Zofran IVP 4 mg Q6H PRN Administration Nausea/Vomiting Polyethylene Glycol 17 gm 10/20/19 09:00 10/20/19 08:58 Miralax PO 17 gm DAILY SAMMIE Administration Sodium Chloride 10 ml 10/15/19 09:00 10/20/19 08:59 Flush - Normal Saline IVF 10 ml Q12HR SAMMIE Administration - Exam General Appearance: NAD, awake alert Eye: PERRL, anicteric sclera ENT: normocephalic atraumatic, no oropharyngeal lesions Neck: no JVD Heart: RRR, no murmur, no gallops, no rubs Respiratory: CTAB, no wheezes, no ronchi Gastrointestinal: soft, non-distended, normal bowel sounds Gastrointestinal - other findings: epigastric tenderness, minimal bowel sounds Extremities: no cyanosis, no clubbing, no edema Skin: normal turgor, no lesions, no rashes Neurological: cranial nerve grossly intact, normal sensation to touch, no focal deficits, no new deficit Musculoskeletal: normal tone, normal strength, no muscle wasting Psychiatric: normal affect, normal behavior, A&O x 3, oriented to person Hosp A/P - Plan Chest x ray: normal Abd US: diffuse fatty liver. GB sludge. Fluid adjacent to pancreatic head and right hepatic lobe CT abdomen: inflammatory changes in peripancreatic region which may represent hydrosalpinx versus tubo-ovarian abscess This is a 34 year old female who presented with pancreatitis #Acute pancreatitis secondary to hypertriglyceridemia - still not tolerating oral intake well - I have discussed with GI who wants patient to be transferred to [facility] for insulin drip - aim for triglycerides less than 500 Hydrosalpinx vs tubo-ovarian abscess - noted on CT abdomen. Will get OBGYn consult - check pelvic ultrasound #COVID 19 infection - not requiring oxygen, will monitor #Leukopenia #Anemia - WBC 3, HB 8 - stable, will monitor
--- NOTE | 2019-10-20 13:55 | PRG ---
DATE OF SERVICE: 10/20/2019 SUBJECTIVE: Ms. Echols says her pain is a little bit better today, but she has still been requiring morphine. She had an episode of vomiting yesterday, mostly bilious and then pink-tinged fluid. Whenever she tries to have any Jell-O or pudding, she will have worsening of epigastric pain. She has not had any bowel movement. Triglycerides still remain above 500 this morning. She has otherwise remained stable. OBJECTIVE: VITAL SIGNS: Temperature 97.8, pulse 58, blood pressure 129/80, 95% oxygen saturation on room air. GENERAL: No acute distress. HEART: Regular rate and rhythm. LUNGS: Clear to auscultation bilaterally. ABDOMEN: Bowel sounds are hypoactive, but present. The abdomen is soft. Tender to palpation in the epigastrium. No guarding or rebound tenderness. EXTREMITIES: No peripheral edema. LABORATORY STUDIES: WBC 4.4, hemoglobin 8.3, platelets 151. Sodium 139, potassium 3.5, BUN 5, creatinine 0.65. Triglycerides 541. Glucose 100. ASSESSMENT AND PLAN: 1. Hypertriglyceridemia-induced pancreatitis. 2. Epigastric pain, persistent. Over the past 4 days, unfortunately, the patient has not had much clinical improvement in the level of her abdominal pain or tolerance of attempted dietary advancement. This is despite normalization of the lipase, otherwise all favorable laboratory and hemodynamic markers. The triglycerides remain elevated greater than 500 despite multiple administrations of insulin. I think at this point, we are going to need to back off the diet further again to strict n.p.o. status, and also put her back on an insulin drip. I have spoken with Dr. Card regarding this as well. Otherwise, continue with supportive care. Job ID: [id number]
[2019-10-20] MEDS: HUMULIN R 100 UNITS in Sodium Chloride 0.9% 100 ML IVPB SCH (15:45)
--- NOTE | 2019-10-20 18:13 | PDOC.EVN ---
Event Note - Event Note Event Note: 34 yo LAF admitted with pancreatitis and + COVID testing. CT of pelvis done 10/14 showed ? hydrosalpinx vs. ? TOA. GC and chlamydia PDR of urine ordered. Will do consult after Pelvic USG.
--- NOTE | 2019-10-20 19:08 | ULT ---
EXAM: Pelvic ultrasound HISTORY: Hydrosalpinx versus tubo-ovarian abscess seen on CT COMPARISON: CT abdomen/pelvis 10/14/2019 TECHNIQUE: Multiple grayscale and color Doppler images were obtained in a transabdominal and transvag inal pelvic ultrasound. Spectral analysis of the Doppler waveforms of the ovaries were performed. FINDINGS: CERVIX: No evidence of nabothian cysts. UTERUS: There is a 1.0 cm hypoechoic lesion which may represent a small fibroid. ENDOMETRIAL STRIPE: 8 mm. No free fluid is seen in the pelvis. No obvious dilated fallopian tubes are seen in either adnexal re gion. RIGHT OVARY: Normal flow without focal mass. LEFT OVARY: Normal flow without focal mass. IMPRESSION: 1. No obvious dilated tubular structure seen to correspond to the abnormality on CT. The abnormality on CT may have been secondary to fluid-filled loops of small bowel near the uterus. If further evaluation is desired, then a repeat CT of the abdomen/pelvis with enteric contrast is recommended to properly opacify the bowel loops. 2. Possible small uterine fibroid
[2019-10-20] MEDS ORDERED: Fish Oil 1,000 MG CAP PO SCH (20:00)
--- NOTE | 2019-10-20 20:02 | PDOC.EVN ---
Event Note - Event Note Event Note: USG returns with no evidence of adnexal mass or TOA. Report suggests that finding in earlier CT may have been loops of bowel. Spoke with [employer] about need for [employer] DEL[employer]ICER consult in view of negative USG and was told to contact physician in AM.
[2019-10-20] MEDS: Atorvastatin Calcium 40 MG TAB PO SCH (20:33)
[2019-10-21 04:05] LABS: Hemoglobin 9.2 g/dL (12.0-16.0); Mean Corpuscular HGB CONC 34.4 g/dL (32.0-36.0); Mean Corpuscular Hemoglobin 29.3 pg (27.0-31.0); Mean Corpuscular Volume 85.1 fL (78.0-98.0); Platelet Count 170 thou/uL (130-400); RBC Distribution Width 12.9 % (11.5-14.5); Red Blood Cell (RBC) Count 3.14 mill/uL (4.20-5.40); White Blood Cell (WBC) Count 2.2 thou/uL (4.8-10.8)
[2019-10-21 04:27] LABS: Anion Gap 10 mmol/L (10-20); BUN (Urea Nitrogen) 5 mg/dL (7.0-18.7); Calc. Creatinine Clearance 131 mL/min (70-130); Calcium 8.6 mg/dL (7.8-10.44); Carbon Dioxide 29 mmol/L (22-29); Chloride 105 mmol/L (98-107); Estimated GFR-MDRD Greater than 90; Glucose 94 mg/dL (70-105); Potassium 3.4 mmol/L (3.5-5.1); Sodium 141 mmol/L (136-145)
[2019-10-21] MEDS: Dextrose 5 % And 0.9 % NaCl 1,000 ML IV SCH ×2 (04:58→13:32)
[2019-10-21] MEDS: HYDROcodone/Acetaminophen 7.5/325 mg Tablet PO PRN (04:58)
[2019-10-21] MEDS ORDERED: Potassium Chloride 20 MEQ TAB PO SCH ×2 (07:00→09:30)
--- NOTE | 2019-10-21 10:01 | PRG ---
DATE OF SERVICE: 10/21/2019 SUBJECTIVE: Ms. Echols was moved to the [facility] for insulin infusion. She has insulin and D5 both running, though insulin is only at 1 unit/hour. Triglycerides this morning are 547. Her glucoses have been running around 100. Thankfully, she says she is feeling a bit better. There is no further nausea or vomiting. She does still have epigastric pain, which she says is better. I do note that she required hydrocodone last night though. She has remained otherwise clinically and hemodynamically stable. OBJECTIVE: VITAL SIGNS: Temperature 97.6, blood pressure 110/85, heart rate 53, and 93% oxygen saturation on room air. GENERAL: No acute distress. HEART: Regular rate and rhythm. LUNGS: Clear to auscultation bilaterally. ABDOMEN: Bowel sounds are present. Soft. Tender to palpation in the epigastrium. No guarding or rebound tenderness. EXTREMITIES: No peripheral edema. LABORATORY STUDIES: Sodium 141, potassium 3.4, BUN 5, creatinine 0.64, glucose 105, triglycerides 547. COVID PCR positive. IMAGING STUDIES: Pelvic ultrasound showed no evidence of tubo-ovarian abscess. ASSESSMENT AND PLAN: 1. Hypertriglyceridemia induced pancreatitis. 2. Epigastric pain, persistent, a bit improved today. The patient has really not had much clinical improvement with regard to abdominal pain over the last 5 days despite normalization of lipase and otherwise all favorable laboratory and hemodynamic markers. The triglycerides have remained elevated greater than 500 despite multiple administrations of insulin. Recommend that she remain on insulin drip for now with goal triglycerides less than 500. To my understanding, the proper protocol would be insulin given at 0.1 to 0.3 units/kg per hour, which would be about 6 units/hour, with concurrent D5 administration, titrate the D5 to maintain glucose 120 to 200. Recheck triglycerides later today. We will discuss with hospitalist as well. Job ID: [id number]
[2019-10-21] MEDS: Fenofibrate Nanocrystallized 145 MG TAB PO SCH (10:15)
[2019-10-21] MEDS: Polyethylene Glycol 3350 17 GM Packet PO SCH (10:15)
[2019-10-21] MEDS: Famotidine/PF 20 mg/2ml Vial SLOW IVP SCH ×2 (10:15→20:24)
[2019-10-21] MEDS: Enoxaparin Sodium 40 MG/0.4 ML SYRINGE SC SCH (10:15)
[2019-10-21] MEDS: Fish Oil 1,000 MG CAP PO SCH (10:15)
--- NOTE | 2019-10-21 11:33 | RAD ---
Portable chest: HISTORY: Covid positive. Shortness of breath. COMPARISON: 10/15/2019 FINDINGS: Lung jim are clear. Heart and mediastinum appear unremarkable. Vascularity is normal. Visualized osseous structures unremarkable. IMPRESSION: No acute finding
[2019-10-21] MEDS ORDERED: Iopamidol-370 76% 500 ML 1 ML ONE (11:55)
[2019-10-21 12:16] LABS: Ref Lab Test Ordered TRICH NAA UR; Reference Lab Name LABCORP
--- NOTE | 2019-10-21 14:27 | CT ---
CT abdomen and pelvis with and without IV contrast. Oral contrast was administered. Postcontrast images obtained with arterial phase and portal venous phase. INDICATIONS: Abdominal pain. Pancreatitis. COMPARISON: Recent CT abdomen pelvis FINDINGS: Images through lung bases now show small to moderate size bilateral pleural effusions with bibasilar compressive atelectasis. Liver unremarkable. Mild splenomegaly is stable. Spleen measures 14 cm craniocaudal. Mild peripancreatic edema and fluid again noted. No pseudocyst or pancreatic mass identified. No evid ence of pancreatic necrosis. Increased edema and inflammation is seen today anterior to the body the pancreas extending into the h epatogastric region. The gallbladder is distended. No pericholecystic edema or fluid. Stomach and duodenum appear unremarkable. Adrenal glands appear normal. Kidneys appear unremarkable. Collecting structures and urinary bladder appear unremarkable. Mild nonspecific distention of proximal small bowel loops. No evidence of dilatation or obstruction. Appendix not identified. Colon is unremarkable. Aorta is normal caliber. No evidence of retroperitoneal or mesenteric adenopathy. Uterus and adnexa unremarkable. Urinary bladder unremarkable. Subcutaneous tissues, abdominal wall, and muscular structures appear unremarkable. Osseous structures appear unremarkable. IMPRESSION: 1. Mild peripancreatic edema and inflammation in the region of the pancreatic head and neck. Increase d inflammation seen today anterior to the pancreas extending into the hepatogastric region. 2. Gallbladder distention 3. Bilateral pleural effusions and bibasilar atelectasis
[2019-10-21] MEDS ORDERED: Furosemide 20 MG/2 ML VIAL SLOW IVP SCH (14:45)
[2019-10-21] MEDS: Dextrose 10% in Water 1,000 ML IV SCH ×2 (16:02→22:16)
--- NOTE | 2019-10-21 17:00 | PDOC.HOSPP ---
- Subjective Encounter Date: 10/21/19 Encounter Time: 13:00 Subjective: The patient still has some abdominal pain and nausea, states it is dull but strong if she takes a deep breath Her blood sugars have been in the 90's and nurses have been unable to increase insulin drip further. CT abdomen still showing persistent pancreatitis - Objective Vital Signs & Weight: Vital Signs (12 hours) Temp 10/21/19 07:41 97.6 F Weight Weight 151 lb 0.266 oz Most Recent Monitor Data Heart Rate from ECG 54 NIBP 140/84 NIBP BP-Mean 102 Respiration from ECG 22 SpO2 100 I&O: 10/20/19 10/21/19 10/22/19 06:59 06:59 06:59 Intake Total 1920 1444.9 Output Total 1725 1100 Balance 1920 -280.1 -1100 Result Diagrams: 10/21/19 03:20 10/21/19 03:20 Additional Labs: Accuchecks 10/21/19 10/21/19 10/21/19 15:47 13:28 06:06 POC Glucose 87 92 105 10/21/19 10/21/19 10/21/19 05:08 04:13 02:55 POC Glucose 107 113 H 109 10/21/19 10/21/19 10/21/19 02:06 01:00 00:13 POC Glucose 97 95 81 10/20/19 10/20/19 10/20/19 22:59 22:10 20:51 POC Glucose 91 97 Less than 35 L* 10/20/19 10/20/19 18:21 15:57 POC Glucose 94 85 Hospitalist ROS - Review of Systems Constitutional: denies: fever, chills - Medication Medications: Active Medications Generic Name Dose Route Start Last Admin Trade Name Freq PRN Reason Stop Dose Admin Hydrocodone Bitart/Acetaminophen 1 tab 10/15/19 03:18 10/20/19 13:02 [place] 5/325 PO 1 tab Q4H PRN Administration Moderate Pain (4-6) Hydrocodone Bitart/Acetaminophen 2 tab 10/15/19 03:18 10/18/19 22:02 [place] 5/325 PO 2 tab Q4H PRN Administration Severe Pain (7-10) Hydrocodone Bitart/Acetaminophen 2 tab 10/15/19 03:18 10/21/19 04:58 [place] 7.5/325 PO 2 tab Q4H PRN Administration Severe Pain (7-10) Atorvastatin Calcium 40 mg 10/18/19 21:00 10/20/19 20:33 Lipitor PO 40 mg HS SAMMIE Administration Enoxaparin Sodium 40 mg 10/15/19 09:00 10/21/19 10:15 Lovenox SC 40 mg 0900 SAMMIE Administration Famotidine 20 mg 10/15/19 09:00 10/21/19 10:15 Pepcid SLOW IVP 20 mg Q12HR SAMMIE Administration Fenofibrate 145 mg 10/19/19 09:00 10/21/19 10:15 Tricor PO 145 mg DAILY SAMMIE Administration Fish Oil 1,000 mg 10/21/19 09:00 10/21/19 10:15 Fish Oil PO 1,000 mg DAILY SAMMIE Administration Insulin Human Regular 100 101 mls @ 0 mls/hr 10/20/19 13:30 10/20/19 15:45 units/ Sodium Chloride IVPB 101 mls INF SAMMIE Administration Protocol Titrate Dextrose/Water 1,000 mls @ 150 mls/hr 10/21/19 15:30 10/21/19 16:02 Dextrose 10% In Water IV 1,000 mls .Q6H40M SAMMIE Administration Ketorolac Tromethamine 15 mg 10/16/19 18:58 10/18/19 08:14 Toradol IVP 10/21/19 18:59 15 mg Q6H PRN Administration Pain Morphine Sulfate 4 mg 10/15/19 03:57 10/19/19 21:39 Morphine SLOW IVP 4 mg Q2H PRN Administration Breakthrough Pain Ondansetron HCl 4 mg 10/15/19 03:18 10/15/19 21:14 Zofran Odt PO 4 mg Q6H PRN Administration Nausea/Vomiting Ondansetron HCl 4 mg 10/15/19 03:18 10/20/19 01:01 Zofran IVP 4 mg Q6H PRN Administration Nausea/Vomiting Polyethylene Glycol 17 gm 10/20/19 09:00 10/21/19 10:15 Miralax PO 17 gm DAILY SAMMIE Administration Sodium Chloride 10 ml 10/15/19 09:00 10/21/19 10:17 Flush - Normal Saline IVF 10 ml Q12HR SAMMIE Administration - Exam General Appearance: NAD, awake alert Eye: PERRL, anicteric sclera ENT: normocephalic atraumatic, no oropharyngeal lesions Neck: no JVD Heart: RRR, no murmur, no gallops, no rubs Respiratory: CTAB, no wheezes, no rales, no ronchi Gastrointestinal: soft, non-tender, non-distended, normal bowel sounds Extremities: no cyanosis, no clubbing, no edema Hosp A/P - Plan Chest x ray: normal Abd US: diffuse fatty liver. GB sludge. Fluid adjacent to pancreatic head and right hepatic lobe CT abdomen: inflammatory changes in peripancreatic region which may represent hydrosalpinx versus tubo-ovarian abscess Chest Xray 10/21/2019: no acute finding CT adomen: peripancreatic edema and inflammation in region of pancreatic head and neck. Increased inflammation anterior to pancreas extending into hepatogastric region. GB distension. Bilateral pleural effusions and bibasilar atelectasis This is a 34 year old female who presented with pancreatitis #Acute pancreatitis secondary to hypertriglyceridemia - still not tolerating oral intake well - she was started on insulin drip. Triglyceride today was 547, on admission was >3000 - will switch to D10 drip at 150/hour. Goal is to have drip running at about 6 units an hour Hypokalemia - potassium 3.4, will recheck #COVID 19 infection - not requiring oxygen, will monitor #Leukopenia #Anemia - WBC 2.2, HB 9.2
[2019-10-21] MEDS: Acetaminophen 325 MG TAB PO PRN (20:24)
[2019-10-21] MEDS: Atorvastatin Calcium 40 MG TAB PO SCH (20:24)
[2019-10-22 03:45] LABS: Hemoglobin 10.8 g/dL (12.0-16.0); Mean Corpuscular Hemoglobin 27.6 pg (27.0-31.0); Mean Corpuscular Volume 83.7 fL (78.0-98.0); Mean Platelet Volume 7.4 fL (7.4-10.4); Platelet Count 188 thou/uL (130-400); Red Blood Cell (RBC) Count 3.91 mill/uL (4.20-5.40); White Blood Cell (WBC) Count 3.3 thou/uL (4.8-10.8)
[2019-10-22 03:56] LABS: Anion Gap 14 mmol/L (10-20); BUN (Urea Nitrogen) 4 mg/dL (7.0-18.7); Calc. Creatinine Clearance 120 mL/min (70-130); Calcium 9.5 mg/dL (7.8-10.44); Carbon Dioxide 26 mmol/L (22-29); Chloride 100 mmol/L (98-107); Estimated GFR-MDRD Greater than 90; Glucose 141 mg/dL (70-105); Potassium 3.1 mmol/L (3.5-5.1); Sodium 137 mmol/L (136-145)
[2019-10-22] MEDS: Dextrose 10% in Water 1,000 ML IV SCH ×4 (04:51→20:34)
[2019-10-22] MEDS ORDERED: Potassium Chloride 20 MEQ TAB PO SCH (06:30)
[2019-10-22] MEDS: Acetaminophen 325 MG TAB PO PRN ×2 (06:39→18:38)
[2019-10-22] MEDS: Fish Oil 1,000 MG CAP PO SCH (08:53)
[2019-10-22] MEDS: Enoxaparin Sodium 40 MG/0.4 ML SYRINGE SC SCH (08:53)
[2019-10-22] MEDS: Famotidine/PF 20 mg/2ml Vial SLOW IVP SCH ×2 (08:53→20:28)
[2019-10-22] MEDS: Fenofibrate Nanocrystallized 145 MG TAB PO SCH (08:53)
[2019-10-22] MEDS: Polyethylene Glycol 3350 17 GM Packet PO SCH (08:54)
--- NOTE | 2019-10-22 10:15 | ULT ---
Exam: Right upper quadrant ultrasound: HISTORY: Persistent pancreatitis. COMPARISON: 10/15/2019 FINDINGS: Liver: Again noted is increased echogenicity of the liver most compatible with hepatic steatosis. No focal hepatic lesion is identified. Gallbladder: Echogenic material in the gallbladder lumen suggesting sludge. No gallbladder calculus i s seen. No gallbladder wall thickening or pericholecystic fluid is identified. Common bile duct: The common duct is normal in caliber measuring 0.4 cm in diameter. Pancreas: Limited visualized portions of the pancreas demonstrate a normal sonographic appearance. Right kidney: Right kidney demonstrates a normal sonographic appearance. The right kidney measures 1 2.2 cm in length. IVC: The visualized IVC demonstrates a normal sonographic appearance. IMPRESSION: 1. Hepatic steatosis also seen on prior exam. 2. Gallbladder sludge without evidence of a gallbladder calculus. 3. Only a small portion of the pancreas is visualized which demonstrates a grossly normal sonographic appearance. No fluid is seen adjacent to the pancreas which was seen on the prior exam, and no obvious peripancreatic fluid collection is visualized. However, portions of the head as well as dista l body and tail of pancreas are obscured by bowel gas.
--- NOTE | 2019-10-22 12:43 | PDOC.HOSPP ---
- Subjective Encounter Date: 10/22/19 Encounter Time: 07:00 Subjective: The patient still reports abdominal pain that comes and goes. States that since last night she has had profuse diarrhea, approximately 7 loose stools a day, yellow in color - Objective Vital Signs & Weight: Weight Weight 151 lb 0.266 oz Most Recent Monitor Data Heart Rate from ECG 56 NIBP 117/73 NIBP BP-Mean 87 Respiration from ECG 21 SpO2 95 I&O: 10/21/19 10/22/19 10/23/19 06:59 06:59 06:59 Intake Total 1444.9 1812 Output Total 1725 5250 Balance -561.4 -8705 Result Diagrams: 10/22/19 03:22 10/22/19 03:22 Additional Labs: Accuchecks 10/22/19 10/22/19 10/22/19 10:24 09:08 06:07 POC Glucose 111 H 121 H 126 H 10/22/19 10/22/19 10/22/19 05:02 03:26 02:15 POC Glucose 126 H 142 H 125 H 10/22/19 10/22/19 10/21/19 01:13 00:15 23:04 POC Glucose 115 H 128 H 141 H 10/21/19 10/21/19 10/21/19 22:24 21:31 20:38 POC Glucose 139 H 126 H 105 10/21/19 10/21/19 10/21/19 18:29 17:11 15:47 POC Glucose 111 H 108 87 10/21/19 10/21/19 10/21/19 14:19 13:28 12:11 POC Glucose 76 92 83 10/21/19 07:01 POC Glucose 104 Hospitalist ROS - Review of Systems Constitutional: denies: fever, chills Gastrointestinal: denies: nausea, vomiting - Medication Medications: Active Medications Generic Name Dose Route Start Last Admin Trade Name Freq PRN Reason Stop Dose Admin Acetaminophen 650 mg 10/15/19 03:18 10/22/19 06:39 Tylenol PO 650 mg Q4H PRN Administration Headache/Fever/Mild Pain (1-3) Hydrocodone Bitart/Acetaminophen 1 tab 10/15/19 03:18 10/20/19 13:02 [place] 5/325 PO 1 tab Q4H PRN Administration Moderate Pain (4-6) Hydrocodone Bitart/Acetaminophen 2 tab 07/28/20 03:18 10/18/19 22:02 [place] 5/325 PO 2 tab Q4H PRN Administration Severe Pain (7-10) Hydrocodone Bitart/Acetaminophen 2 tab 10/15/19 03:18 10/21/19 04:58 [place] 7.5/325 PO 2 tab Q4H PRN Administration Severe Pain (7-10) Atorvastatin Calcium 40 mg 10/18/19 21:00 10/21/19 20:24 Lipitor PO 40 mg HS SAMMIE Administration Enoxaparin Sodium 40 mg 10/15/19 09:00 10/22/19 08:53 Lovenox SC 40 mg 0900 SAMMIE Administration Famotidine 20 mg 10/15/19 09:00 10/22/19 08:53 Pepcid SLOW IVP 20 mg Q12HR SAMMIE Administration Fenofibrate 145 mg 10/19/19 09:00 10/22/19 08:53 Tricor PO 145 mg DAILY SAMMIE Administration Fish Oil 1,000 mg 10/21/19 09:00 10/22/19 08:53 Fish Oil PO 1,000 mg DAILY SAMMIE Administration Insulin Human Regular 100 101 mls @ 0 mls/hr 10/20/19 13:30 10/20/19 15:45 units/ Sodium Chloride IVPB 101 mls INF SAMMIE Administration Protocol Titrate Dextrose/Water 1,000 mls @ 150 mls/hr 10/21/19 15:30 10/22/19 11:42 Dextrose 10% In Water IV 1,000 mls .Q6H40M SAMMIE Administration Morphine Sulfate 4 mg 10/15/19 03:57 10/19/19 21:39 Morphine SLOW IVP 4 mg Q2H PRN Administration Breakthrough Pain Ondansetron HCl 4 mg 10/15/19 03:18 10/15/19 21:14 Zofran Odt PO 4 mg Q6H PRN Administration Nausea/Vomiting Ondansetron HCl 4 mg 10/15/19 03:18 10/20/19 01:01 Zofran IVP 4 mg Q6H PRN Administration Nausea/Vomiting Polyethylene Glycol 17 gm 10/20/19 09:00 10/22/19 08:54 Miralax PO Not Given DAILY SAMMIE Sodium Chloride 10 ml 10/15/19 09:00 10/22/19 08:54 Flush - Normal Saline IVF 10 ml Q12HR SAMMIE Administration - Exam General Appearance: NAD, awake alert Eye: PERRL, anicteric sclera ENT: normocephalic atraumatic, no oropharyngeal lesions Neck: no JVD Heart: RRR, no murmur, no gallops, no rubs Respiratory: CTAB, no wheezes, no rales, no ronchi Gastrointestinal: soft, non-distended, normal bowel sounds, no hepatomegaly Gastrointestinal - other findings: mild abdominal tenderness Extremities: no cyanosis, no clubbing, no edema Skin: normal turgor, no lesions, no rashes Neurological: cranial nerve grossly intact, normal sensation to touch, no focal deficits, no new deficit Hosp A/P - Plan Chest x ray: normal Abd US: diffuse fatty liver. GB sludge. Fluid adjacent to pancreatic head and right hepatic lobe CT abdomen: inflammatory changes in peripancreatic region which may represent hydrosalpinx versus tubo-ovarian abscess Chest Xray 10/21/2019: no acute finding CT adomen: peripancreatic edema and inflammation in region of pancreatic head and neck. Increased inflammation anterior to pancreas extending into hepatogastric region. GB distension. Bilateral pleural effusions and bibasilar atelectasis This is a 34 year old female who presented with pancreatitis #Acute pancreatitis secondary to hypertriglyceridemia - still not tolerating oral intake well - her insulin drip was increased to 3 units. She is on D10 drip. Titrate drip to goal of 6 units/hour. Aim to keep glucose < 250 - triglyceride today still 576, was 3000 on admission Diarrhea - check c diff, stool cultures, stool ova and parasite, e coli, camp - check magnesium level Hypokalemia - potassium 3.1, replaced #COVID 19 infection - not requiring oxygen, will monitor #Leukopenia #Anemia - WBC up to 3.3
--- NOTE | 2019-10-22 17:47 | PRG ---
DATE OF SERVICE: 10/22/2019 SUBJECTIVE: Ms. Echols has had improvement in her abdominal pain today compared to yesterday. She had gone 8 days without a bowel movement, but then today she has been having diarrhea multiple times throughout the day. No blood in the stool. OBJECTIVE: VITAL SIGNS: Blood pressure 113/85, pulse 66, temperature is 96.9. GENERAL: She is in no acute distress. Alert and oriented x3. LUNGS: Clear to auscultation bilaterally. HEART: Regular rate and rhythm without murmur. ABDOMEN: Soft. Minimal tenderness without guarding. Bowel sounds are present. EXTREMITIES: No lower extremity edema. IMPRESSION: 1. Acute hypertriglyceridemia-induced pancreatitis. Overall, this has been mild without secondary organ failure. Her pain is slowly improving. She had a followup CT scan that actually showed increased edema and inflammatory changes. Primary treatment for the pancreatitis will be fluids and supportive care and to try to get her triglycerides less than 500. 2. Familial hypertriglyceridemia. She has been started on fenofibrate. She is on insulin to try to lower her serum triglyceride level to bridge while we are waiting for the fenofibrate to take effect. 3. COVID PCR positive. RECOMMENDATIONS: 1. Continue fenofibrate and fluids. 2. DVT prophylaxis. 3. She is remaining on insulin drip while we are trying to drive her triglyceride level down to a point that she can be controlled on oral medication alone. Job ID: [id number]
[2019-10-22] MEDS: Atorvastatin Calcium 40 MG TAB PO SCH (20:29)
[2019-10-22 20:59] LABS: Chlam.trachomatis by PCR,Urine Not Detected (NotDetected)
[2019-10-22] MEDS: HYDROcodone/Acetaminophen 5/325 mg Tablet PO PRN (22:06)
[2019-10-22] MEDS: HUMULIN R 100 UNITS in Sodium Chloride 0.9% 100 ML IVPB SCH (23:09)
[2019-10-23] MEDS: Dextrose 10% in Water 1,000 ML IV SCH ×2 (01:09→06:06)
[2019-10-23 03:37] LABS: Hemoglobin 11.2 g/dL (12.0-16.0); Mean Corpuscular HGB CONC 32.9 g/dL (32.0-36.0); Mean Corpuscular Hemoglobin 27.7 pg (27.0-31.0); Mean Platelet Volume 7.6 fL (7.4-10.4); Platelet Count 186 thou/uL (130-400); RBC Distribution Width 12.9 % (11.5-14.5); Red Blood Cell (RBC) Count 4.05 mill/uL (4.20-5.40)
[2019-10-23 03:57] LABS: Anion Gap 12 mmol/L (10-20); BUN (Urea Nitrogen) Less than 4 mg/dL (7.0-18.7); Calc. Creatinine Clearance 120 mL/min (70-130); Calcium 9.3 mg/dL (7.8-10.44); Carbon Dioxide 25 mmol/L (22-29); Chloride 102 mmol/L (98-107); Estimated GFR-MDRD Greater than 90; Glucose 111 mg/dL (70-105); Sodium 136 mmol/L (136-145)
[2019-10-23 04:01] LABS: Potassium 2.9 mmol/L (3.5-5.1)
[2019-10-23] MEDS: Potassium Chloride 20 MEQ TAB PO SCH ×2 (05:16→09:08)
[2019-10-23] MEDS: HYDROcodone/Acetaminophen 5/325 mg Tablet PO PRN (05:36)
[2019-10-23] MEDS: Fish Oil 1,000 MG CAP PO SCH (09:08)
[2019-10-23] MEDS: Fenofibrate Nanocrystallized 145 MG TAB PO SCH (09:08)
[2019-10-23] MEDS: Famotidine/PF 20 mg/2ml Vial SLOW IVP SCH ×2 (09:08→19:55)
[2019-10-23] MEDS: Polyethylene Glycol 3350 17 GM Packet PO SCH (09:08)
[2019-10-23] MEDS: Enoxaparin Sodium 40 MG/0.4 ML SYRINGE SC SCH (09:08)
[2019-10-23 11:50] LABS: Potassium 3.3 mmol/L (3.5-5.1)
[2019-10-23] MEDS ORDERED: Potassium Chloride 20 MEQ TAB PO SCH (12:30)
--- NOTE | 2019-10-23 15:28 | PRG ---
DATE OF SERVICE: 10/23/2019 REASON FOR CONSULTATION: Hypertriglyceridemia with pancreatitis. SUBJECTIVE: Per nursing staff, the patient did not experience any acute events or problems overnight. She does continue to have some midepigastric abdominal pain today, but has improved when compared to previous. Per nursing staff, she was also able to achieve approximately 6 units of insulin per hour while on the insulin drip with some borderline hypoglycemic numbers early this morning, but has been able to otherwise tolerate the insulin drip well. Otherwise, no mention of nausea, vomiting, fevers, chills, hematemesis, melena, or hematochezia. OBJECTIVE: VITAL SIGNS: Temperature 98, pulse 68, blood pressure 101/67, respiratory rate 14, saturating 100% on room air. The physical examination was not performed due to the patient's positive COVID-19 status. LABORATORY DATA: CBC with a white blood cell count of 4, hemoglobin 11.2, hematocrit 34, platelets 186. Chemistry with a sodium of 136, potassium 2.9, chloride 102, CO2 of 25, BUN less than 4, creatinine 0.7, glucose 111, triglycerides 509. IMAGING DATA: Right upper quadrant abdominal ultrasound was obtained on October 22, 2019, which showed increased echogenicity of the liver consistent with hepatic steatosis, but no mention of cirrhotic morphology. Echogenic material was seen within the gallbladder lumen suggesting sludge, but no gallstones, gallbladder wall thickening, or pericholecystic fluid was identified. The common bile duct measured approximately 4 mm in diameter and limited visualization of pancreas demonstrated normal sonographic appearance. ASSESSMENT AND PLAN: The patient is a 34-year-old female with past medical history of familial hypertriglyceridemia and recurrent pancreatitis, presenting again with pancreatitis secondary to significantly elevated serum triglycerides. Hypertriglyceride-induced pancreatitis: The patient was initially admitted to the hospital with increased midepigastric abdominal pain with radiation to the back in addition to nausea and vomiting. On further evaluation of the patient's chart, she had had approximately 3 or 4 episodes of pancreatitis in the past with the last occurrence being approximately 8 to 9 months prior to this hospitalization. On evaluation in the ER, the patient was noted to have a significant hypertriglyceridemia with her triglycerides reaching over 3000. She was initially placed on an insulin drip with good response to management with transfer to fenofibrate within 24 to 48 hours, but despite addition of fenofibrate, she ultimately required being placed back on the insulin drip due to her triglycerides not achieving levels below 500. Currently, the patient's pain is getting much better and her triglycerides are approximately 509 today indicating good response to the insulin drip thus far. At this time with the concurrent diagnosis of familial hypertriglyceridemia, it does not appear as if the fenofibrate may be enough in order to maintain the patient as an outpatient. Given her triglycerides coming back down to close to 500, I think transferring/weaning her off the insulin drip would be recommended in addition to placing her on omega-3 fatty acids as part of treatment for her hypertriglyceridemia. RECOMMENDATIONS: 1. Would recommend weaning the patient off the insulin drip over the next 12 to 24 hours given that her triglycerides are coming back to below 500. 2. Continue monitoring her blood glucose while on the insulin drip to prevent hypoglycemia. 3. Pain control per primary team. 4. We will continue with IV fluid resuscitation. 5. Would start the patient on a clear liquid diet and advance as tolerated. 6. We will continue the patient on fenofibrate 145 mg daily, but would also consider addition of omega-3 fatty acids to her regimen. If the patient still has difficulty getting her triglycerides below 500 on this regimen, one could also consider low potency statin for additional hypertriglyceridemia support (particularly pravastatin). We will continue to follow. Please call with any questions. Dr. Kwok will be seeing this patient tomorrow. Please direct any questions tomorrow towards him. Job ID: [id number]
--- NOTE | 2019-10-23 15:34 | PDOC.HOSPP ---
- Subjective Encounter Date: 10/23/19 Encounter Time: 12:00 Subjective: THe patient states that she swallowed a pill after which she vomited. She states she had severe pain afterwards in her upper quadrants radiating to her back. She describes her pain as a severe burning pain. Continues to have diarrhea 5 times a day She says her pain is not as bad as yesterday Patient states she is starving for food She no longer has pain while taking a deep breath - Objective Vital Signs & Weight: Vital Signs (12 hours) Temp 10/23/19 04:12 98 F Weight Weight 151 lb 0.266 oz Most Recent Monitor Data Heart Rate from ECG 68 NIBP 88/65 NIBP BP-Mean 72 Respiration from ECG 14 SpO2 100 I&O: 10/22/19 10/23/19 10/24/19 06:59 06:59 06:59 Intake Total 1812 2586 Output Total 5250 2400 Balance -3438 186 Result Diagrams: 10/23/19 03:21 10/23/19 10:59 Additional Labs: Accuchecks 10/23/19 10/23/19 10/23/19 08:00 06:13 05:25 POC Glucose 87 76 102 10/23/19 10/23/19 10/23/19 04:11 02:24 01:17 POC Glucose 106 123 H 106 10/23/19 10/22/19 10/22/19 00:01 23:17 22:15 POC Glucose 103 106 91 10/22/19 10/22/19 10/22/19 20:46 18:45 17:35 POC Glucose 78 84 105 10/22/19 10/22/19 16:28 15:08 POC Glucose 74 102 Hospitalist ROS - Review of Systems Constitutional: denies: fever, chills - Medication Medications: Active Medications Generic Name Dose Route Start Last Admin Trade Name Freq PRN Reason Stop Dose Admin Acetaminophen 650 mg 10/15/19 03:18 10/22/19 18:38 Tylenol PO 650 mg Q4H PRN Administration Headache/Fever/Mild Pain (1-3) Hydrocodone Bitart/Acetaminophen 1 tab 10/15/19 03:18 10/23/19 05:36 [place] 5/325 PO 1 tab Q4H PRN Administration Moderate Pain (4-6) Hydrocodone Bitart/Acetaminophen 2 tab 10/15/19 03:18 07/31/20 22:02 [place] 5/325 PO 2 tab Q4H PRN Administration Severe Pain (7-10) Hydrocodone Bitart/Acetaminophen 2 tab 10/15/19 03:18 10/21/19 04:58 [place] 7.5/325 PO 2 tab Q4H PRN Administration Severe Pain (7-10) Atorvastatin Calcium 40 mg 10/18/19 21:00 10/22/19 20:29 Lipitor PO 40 mg HS SAMMIE Administration Enoxaparin Sodium 40 mg 10/15/19 09:00 10/23/19 09:08 Lovenox SC 40 mg 0900 SAMMIE Administration Famotidine 20 mg 10/15/19 09:00 10/23/19 09:08 Pepcid SLOW IVP 20 mg Q12HR SAMMIE Administration Fenofibrate 145 mg 10/19/19 09:00 10/23/19 09:08 Tricor PO 145 mg DAILY SAMMIE Administration Fish Oil 1,000 mg 10/21/19 09:00 10/23/19 09:08 Fish Oil PO 1,000 mg DAILY SAMMIE Administration Insulin Human Regular 100 101 mls @ 0 mls/hr 10/20/19 13:30 10/22/19 23:09 units/ Sodium Chloride IVPB 101 mls INF SAMMIE Administration Protocol Titrate Dextrose/Water 1,000 mls @ 150 mls/hr 10/21/19 15:30 10/23/19 06:06 Dextrose 10% In Water IV 1,000 mls .Q6H40M SAMMIE Administration Morphine Sulfate 4 mg 10/15/19 03:57 10/19/19 21:39 Morphine SLOW IVP 4 mg Q2H PRN Administration Breakthrough Pain Ondansetron HCl 4 mg 10/15/19 03:18 10/15/19 21:14 Zofran Odt PO 4 mg Q6H PRN Administration Nausea/Vomiting Ondansetron HCl 4 mg 10/15/19 03:18 10/20/19 01:01 Zofran IVP 4 mg Q6H PRN Administration Nausea/Vomiting Polyethylene Glycol 17 gm 10/20/19 09:00 10/23/19 09:08 Miralax PO Not Given DAILY SAMMIE Sodium Chloride 10 ml 10/15/19 09:00 10/23/19 09:08 Flush - Normal Saline IVF 10 ml Q12HR SAMMIE Administration - Exam General Appearance: NAD, awake alert Eye: PERRL, anicteric sclera ENT: normocephalic atraumatic, no oropharyngeal lesions Neck: no JVD Heart: RRR, no murmur, no gallops, no rubs Respiratory: CTAB, no wheezes, no rales, no ronchi Gastrointestinal: soft, non-tender, non-distended, normal bowel sounds Extremities: no cyanosis, no clubbing, no edema Skin: normal turgor, no lesions, no rashes Neurological: cranial nerve grossly intact, normal sensation to touch, no focal deficits, no new deficit Musculoskeletal: normal tone, normal strength, no muscle wasting Hosp A/P - Plan Chest x ray: normal Abd US: diffuse fatty liver. GB sludge. Fluid adjacent to pancreatic head and right hepatic lobe CT abdomen: inflammatory changes in peripancreatic region which may represent hydrosalpinx versus tubo-ovarian abscess Chest Xray 10/21/2019: no acute finding CT adomen 10/20: peripancreatic edema and inflammation in region of pancreatic head and neck. Increased inflammation anterior to pancreas extending into hepatogastric region. GB distension. Bilateral pleural effusions and bibasilar atelectasis This is a 34 year old female who presented with pancreatitis #Acute pancreatitis secondary to hypertriglyceridemia -triglycerides over [address] abdomen showing pancreatitis. - she still has pain with clear liquid diet. Repeat CT 10/20 showed peripancreatic edema and inflammation. Triglycerides have improved to 507. Discussed with GI, okay to discontinue insulin drip - will continue fenofibrate, statin and fish oil. Consider adding niacin GERD - will add protonix IV BId - if no improvement consider endoscopy at some point Diarrhea - likely from pancreatiic insufficiency - stool cultures and C diff negative - check fecal fat - GI will add creon supplementation Hypokalemia - from diarrhea - potassium 3.3, continue potassium supplementation #COVID 19 infection - not requiring oxygen, will monitor #Leukopenia #Anemia - Hb 11.2
[2019-10-23] MEDS: Atorvastatin Calcium 40 MG TAB PO SCH (19:54)
[2019-10-23] MEDS: Pantoprazole 40 MG VIAL IVP SCH (19:55)
[2019-10-24 06:08] LABS: Hemoglobin 11.5 g/dL (12.0-16.0); Mean Corpuscular HGB CONC 32.9 g/dL (32.0-36.0); Mean Corpuscular Hemoglobin 27.8 pg (27.0-31.0); Mean Corpuscular Volume 84.2 fL (78.0-98.0); Mean Platelet Volume 7.6 fL (7.4-10.4); Platelet Count 199 thou/uL (130-400); RBC Distribution Width 13.2 % (11.5-14.5); Red Blood Cell (RBC) Count 4.13 mill/uL (4.20-5.40); White Blood Cell (WBC) Count 4.6 thou/uL (4.8-10.8)
[2019-10-24 06:30] LABS: Anion Gap 11 mmol/L (10-20); BUN (Urea Nitrogen) 11 mg/dL (7.0-18.7); Calc. Creatinine Clearance 105 mL/min (70-130); Calcium 9.8 mg/dL (7.8-10.44); Carbon Dioxide 26 mmol/L (22-29); Chloride 105 mmol/L (98-107); Estimated GFR-MDRD 81; Glucose 110 mg/dL (70-105); Magnesium 2.1 mg/dL (1.6-2.6); Sodium 138 mmol/L (136-145)
[2019-10-24] MEDS: Polyethylene Glycol 3350 17 GM Packet PO SCH (08:29)
[2019-10-24] MEDS: Fenofibrate Nanocrystallized 145 MG TAB PO SCH (08:29)
[2019-10-24] MEDS: Enoxaparin Sodium 40 MG/0.4 ML SYRINGE SC SCH (08:29)
[2019-10-24] MEDS: Fish Oil 1,000 MG CAP PO SCH (08:29)
[2019-10-24] MEDS: Pantoprazole 40 MG VIAL IVP SCH (08:30)
[2019-10-24] MEDS: Famotidine/PF 20 mg/2ml Vial SLOW IVP SCH (08:30)
[2019-10-24 08:52] VITALS: BP 110/73; TEMP 97.8
[2019-10-24 10:13] VITALS: BMI 25.1
[2019-10-24 10:17] LABS: Hemoglobin 11.6 g/dL (12.0-16.0); Mean Corpuscular HGB CONC 33.8 g/dL (32.0-36.0); Mean Corpuscular Hemoglobin 28.4 pg (27.0-31.0); Mean Platelet Volume 7.8 fL (7.4-10.4); Platelet Count 200 thou/uL (130-400); RBC Distribution Width 13.1 % (11.5-14.5); White Blood Cell (WBC) Count 3.8 thou/uL (4.8-10.8)
[2019-10-24 10:53] LABS: Anion Gap 14 mmol/L (10-20); BUN (Urea Nitrogen) 12 mg/dL (7.0-18.7); Calc. Creatinine Clearance 104 mL/min (70-130); Calcium 9.8 mg/dL (7.8-10.44); Carbon Dioxide 20 mmol/L (22-29); Chloride 105 mmol/L (98-107); Estimated GFR-MDRD 80; Glucose 124 mg/dL (70-105); Potassium 3.8 mmol/L (3.5-5.1); Sodium 135 mmol/L (136-145); Triglycerides 760 mg/dL (Less than 150)
--- NOTE | 2019-10-24 13:12 | PRG ---
DATE OF SERVICE: 10/24/2019 SUBJECTIVE: Ms. Echols does report her abdominal pain is better. She has been advanced to a regular diet. OBJECTIVE: VITAL SIGNS: T-max 97 to 99, pulse 69, 100% on room air, blood pressure 110/73. The patient was not examined. LABORATORY DATA: White count 3.8, hemoglobin 11.6, platelet count 200. Sodium 135, potassium 3.8, BUN and creatinine are 12 and 0.8. triglycerides 760. Lipase was not checked today and has not been checked since . Liver function tests were normal on admission. ASSESSMENT: 1. Pancreatitis recurrent induced by hypertriglyceridemia, resolved. 2. COVID. RECOMMENDATION: 1. Continue PPI. 2. Hypertriglyceridemia. Recommendations aggressively. May require insulin. 3. No further evaluation for pancreatitis needed. As long as her triglycerides are kept under control, her pancreatitis should stay in remission. We will sign off. If I can be of further assistance in her care, please do not hesitate to contact me. Job ID: [id number]
--- NOTE | 2019-10-24 21:03 | DIS ---
DATE OF ADMISSION: 10/15/2019 DATE OF DISCHARGE: 10/24/2019 DISCHARGE DIAGNOSES: 1. Acute pancreatitis secondary to hypertriglyceridemia 2. COVID + 3. Leukopenia 4. Uterine fibroid. 5. Granuloma in the left lower lobe. BRIEF HISTORY OF PRESENT ILLNESS: This is a 34-year-old female with a past medical history of familial hypertriglyceridemia, who presented to the emergency room with severe abdominal pain and nausea and vomiting. Her CT of her abdomen showed findings consistent for pancreatitis. She had a lipase of 331 on admission. Her triglycerides were over 3000. She was admitted for further workup. #Acute pancreatitis, secondary to hypertriglyceridemia: #GERD #Diarrhea: - Abdominal US showed no gallstones. The patient was started on statin and fenofibrate while in the hospital. She was placed on insulin drip at one point with improvement in her triglycerides to 461, but then it increased again to the 500's. She continued to have persistent pain. Repeat CT abdomen 10/20 showed worsening pancreatitis, possible tubo-ovarian abscess vs hydrosalpinx. Pelvis US showed no abscess and just dilated bowel loops. She was restarted on an insulin drip at second time with improvement in her triglycerides to 500. Chlamydia/gonorrhea PCR was negative. The also had persistent diarrhea and did have stool studies done, which were negative for Clostridium difficile and bacterial infections. She was started on Protonix for possible GERD, and on the day of discharge, she reported resolution of her pain and she was able to tolerate a solid diet without any nausea or vomiting. She was discharged and advised to follow up with her primary in a week and have her triglycerides rechecked. She was discharged with statin, fenofibrate, and niacin. COVID positive: The patient incidentally was noted to be COVID positive. Her chest x-ray showed no acute disease. CT of her abdomen did not show any pulmonary infiltrates. The patient was advised to quarantine for 14 days from when she was first hospitalized. She did not have any respiratory symptoms. Leukopenia: The patient's white count was 3.8. This may be secondary to her COVID infection. She should have this repeated with her PCP in a week. Anemia: The patient's hemoglobin was 11.6. This has improved from when she first came into the hospital with a hemoglobin of 8.1. This should be further worked up as an outpatient. DISCHARGE PHYSICAL EXAMINATION: VITAL SIGNS: Temperature 97.8, heart rate 69, respiratory rate 16, O2 saturation 99% on room air, and blood pressure 110/73. GENERAL: The patient is alert, awake, and oriented x3. CVS: Regular rate and rhythm with no murmurs, rubs, or gallops. LUNGS: Clear to auscultation bilaterally. ABDOMEN: Normal bowel sounds. She has no tenderness or no guarding on exam. EXTREMITIES: No edema. LABORATORY DATA: CBC 10/23: White count 3.8, hemoglobin 11.6, hematocrit 34.4, and platelet count 200. BMP 10/23: Normal except for a low sodium of 135. Triglycerides: 3286 on 10/13, which improved to 760 on 10/23. LFTs 10/14: Were normal. UA 10/19: Was negative for gonorrhea. COVID PCR 10/14: Positive. Chlamydia PCR 10/19: Negative. IMAGING: CT abdomen and pelvis 10/13: Inflammatory changes in the peripancreatic region along with mild edematous changes of the ruby-pancreatic parenchyma. Serpiginous hypodensity in the left and right adnexa, which may represent hydrosalpinx versus tubo-ovarian abscess. Abdominal ultrasound 10/14: Diffuse fatty liver. No gallbladder calculus. A small amount of gallbladder sludge. Chest x-ray 10/14: No acute disease. Pelvis ultrasound 10/19: Possible small uterine fibroid. Fluid-filled loops of small bowel. Chest x-ray 10/20: No acute finding. CT abdomen and pelvis 10/20: Bilateral pleural effusions and bibasilar atelectasis. Gallbladder distention. Mild peripancreatic edema, inflammation in the region of the pancreatic head. Increased inflammation extending to the pancreas to the hepatogastric region. Abdominal ultrasound on 10/21: Hepatic steatosis. Gallbladder sludge without evidence of gallbladder calculus. Only small portion of the pancreas is visualized, which demonstrates a grossly normal sonographic appearance. DISCHARGE CONDITION: Stable. ACTIVITY: As tolerated. DIET: Low-fat diet. DISCHARGE MEDICATIONS: 1. Atorvastatin 40 mg p.o. at bedtime. 2. Fenofibrate 145 mg p.o. daily. 3. Fish oil 1000 mg p.o. daily. 4. Protonix 40 mg p.o. daily. DISCHARGE INSTRUCTIONS: The patient should follow up with her PCP in a week and have her triglycerides repeated. She should have repeat CBC in a week since she was anemic and leukopenic. She was advised to avoid fatty foods. Consider seeing a applications processor for evaluation of her uterine fibroid. Job ID: [id number] BLESSING
== END 2019-10-24 16:08 | disposition home or self-care (01) | DRG 438 ==
LOC: ERS 20:12 → CCU 10-15 01:41 → T4-A 10-15 18:58 → CCU 10-20 15:13 → IMCU/EMU 10-21 04:35 → T4-B 10-23 18:34
PROVIDERS: ADMIT Internal Medicine; ATTEND Internal Medicine
PROC: 8E0ZXY6 Isolation (ICD-10-PCS; principal; 2019-10-15)
DX: K85.90 Acute pancreatitis without necrosis or infection, unspecified (principal); U07.1 COVID-19; J90 Pleural effusion, not elsewhere classified; J98.11 Atelectasis; K56.7 Ileus, unspecified; E78.1 Pure hyperglyceridemia; D72.819 Decreased white blood cell count, unspecified; K21.9 Gastro-esophageal reflux disease without esophagitis; D25.9 Leiomyoma of uterus, unspecified; J84.10 Pulmonary fibrosis, unspecified; R19.7 Diarrhea, unspecified; K59.03 Drug induced constipation; T40.2X5A Adverse effect of other opioids, initial encounter; D64.9 Anemia, unspecified; N70.93 Salpingitis and oophoritis, unspecified; K76.0 Fatty (change of) liver, not elsewhere classified; K86.89 Other specified diseases of pancreas; E87.6 Hypokalemia; Z90.711 Acquired absence of uterus with remaining cervical stump
CPT/HCPCS: 36415; 36416; 71045; 74177; 74178; 76705; 76856; 80048; 80053; 80061; 83690; 83735; 84478; 85007; 85025; 85027; 87045; 87046; 87186; 87324; 87328; 87329; 87427; 87449; 87491; 87591; 87635; 96361; 96365; 96375; 96376; C9113; J1650; J1815; J1885; J1940; J2270; J2405; J3475; J3480; J3490; Q0162; Q9967; S0028; U0003

== ENCOUNTER 2022-03-15 13:15 | Inpatient (IN) | payer OTHER ==
[2022-03-15] MEDS ORDERED: Iopamidol 370 76% 100 ML VIAL ONE (13:29)
[2022-03-15 14:11] LABS: BHCG - Serum Negative (NEGATIVE); Pregs Control Background? CLEAR/WHITE (CLR/WHITE); Pregs Control Bar Appear? YES (CONTROL BAR)
[2022-03-15 14:35] LABS: #Eosinphils 0.1 thou/uL (0.0-0.7); #Lymphocytes 1.4 thou/uL (1.20-3.40); #Monocytes 0.3 thou/uL (0.11-0.59); #Neutrophils 4.5 thou/uL (1.40-6.50); %Basophils 0.5 % (0.0-1.0); %Eosinophils 1.1 % (0.0-10.0); %Lymphocytes 22.2 % (21.0-51.0); %Monocytes 4.6 % (0.0-10.0); %Neutrophils 71.6 % (42.0-75.0); Hemoglobin 10.5 g/dL (12.0-16.0); Mean Corpuscular Hemoglobin 32.5 pg (27.0-31.0); Mean Corpuscular Volume 85.5 fl (78.0-98.0); Mean Platelet Volume 8.3 fL (7.4-10.4); Platelet Count 152 10x3/uL (130-400); RBC Distribution Width 12.2 % (11.5-14.5); Red Blood Cell (RBC) Count 3.24 mill/uL (4.20-5.40); White Blood Cell (WBC) Count 6.3 10x3/uL (4.8-10.8)
[2022-03-15] MEDS ORDERED: Morphine 4 MG/ML VIAL ONE (14:47)
[2022-03-15] MEDS ORDERED: Ondansetron PF 4 MG/2 ML Vial ONE ×2 (14:47→15:55)
[2022-03-15 15:07] LABS: Potassium 3.8 mmol/L (3.5-5.1)
[2022-03-15 15:54] LABS: Albumin 4.6 g/dL (3.5-5.0); Bilirubin, Total 0.8 mg/dL (0.2-1.2); Calcium 9.2 mg/dL (7.8-10.44); Carbon Dioxide 16 mmol/L (22-29)
[2022-03-15 15:55] LABS: Chloride 98 mmol/L (98-107); Glucose 175 mg/dL (70-105); Sodium 124 mmol/L (136-145)
[2022-03-15] MEDS ORDERED: HYDROmorphone 0.5 MG/0.5 ML SYRINGE ONE ×3 (15:55→18:58)
[2022-03-15 16:07] LABS: Globulin 4.2 g/dL (2.4-3.5); Protein, Total 8.8 g/dL (6.0-8.3)
[2022-03-15 16:09] LABS: Alkaline Phosphatase 67 U/L (40-110)
[2022-03-15 16:10] LABS: Calc. Creatinine Clearance 0 mL/min (70-130); Estimated GFR 115
[2022-03-15 16:11] LABS: BUN (Urea Nitrogen) 13 mg/dL (7.0-18.7)
[2022-03-15 16:12] LABS: ALT (SGPT) 28 U/L (8-55); AST (SGOT) 28 U/L (5-34)
[2022-03-15 16:21] LABS: Anion Gap 14 mmol/L (10-20)
[2022-03-15 16:33] LABS: Lipase 1721 U/L (8-78)
[2022-03-15 16:47] LABS: Bilirubin Negative (Negative); Blood, Urine Negative (Negative); Clarity Clear (Clear); Glucose, Urine (Dipstick) Normal (Negative); Ketone, Urine Negative (Negative); Leukocyte Negative Leu/uL (Negative); Nitrite Negative (Negative); Protein, Urine (Dipstick) Negative (Neg-Trace); Specific Gravity, Urine 1.049 (1.002-1.036); Urobilinogen Normal mg/dL (Less than 2); pH, Urine 5.5 (5.0-9.0)
[2022-03-15 16:57] LABS: Amphetamine Not Detected (NotDetected); Barbiturates Screen Not Detected (NotDetected); Benzodiazepine Screen Not Detected (NotDetected); Cocaine Metabolite Screen Not Detected (NotDetected); Methadone Not Detected (NotDetected); Methamphetamine Not Detected (NotDetected); Opiate Screen Detected (NotDetected); Oxycodone Screen Not Detected (NotDetected); Phencyclidine (PCP) Not Detected (NotDetected); THC/Cannabinoid Screen Not Detected (NotDetected); Tricyclic Screen Not Detected (NotDetected)
[2022-03-15] MEDS ORDERED: D5 1/2 NS w/40 mEq KCL 1,000 ML IV SCH (18:00)
[2022-03-15] MEDS ORDERED: INSULIN REGULAR IN 0.9 % NACL 100 UNIT/100 ML BAG ONE (18:12)
[2022-03-15] MEDS ORDERED: D5 1/2 NS w/20 mEq KCL 0 ML ONE (18:12)
[2022-03-15] MEDS ORDERED: Dextrose 50% Abboject 50 ML SYRINGE ONE (18:14)
[2022-03-15] MEDS ORDERED: D5 1/2 NS w/20 mEq KCL 1,000 ML IV PRN (20:39)
[2022-03-15] MEDS ORDERED: Sodium Chloride 0.9% 1,000 ML IV PRN ×4 (20:39)
[2022-03-15] MEDS ORDERED: Electrolyte Replacement Protocol 1 EACH IVPB SCH (20:39)
[2022-03-15] MEDS ORDERED: Ondansetron PF 4 MG/2 ML Vial IVP PRN ×2 (20:39→21:47)
[2022-03-15] MEDS ORDERED: NS 0.9% w/ 20 MEQ KCL 1,000 ML IV PRN ×2 (20:39)
[2022-03-15] MEDS ORDERED: HUMULIN R 100 UNITS in Sodium Chloride 0.9% 100 ML IVPB SCH (20:45)
[2022-03-15] MEDS ORDERED: Zolpidem Tartrate 5 MG TAB PO PRN ×2 (21:27→21:47)
[2022-03-15] MEDS ORDERED: Naloxone HCl 0.4 mg/ml Vial IV PRN ×2 (21:27→21:47)
[2022-03-15] MEDS ORDERED: diphenhydrAMINE 50 MG/ML VIAL IVP PRN ×2 (21:27→21:47)
[2022-03-15] MEDS ORDERED: diphenhydrAMINE 50 MG/ML VIAL IM PRN ×2 (21:27→21:47)
[2022-03-15] MEDS ORDERED: diphenhydrAMINE 25 MG CAP PO PRN ×2 (21:27→21:47)
[2022-03-15] MEDS ORDERED: Promethazine HCl 25 MG/ML VIAL IM PRN ×2 (21:27→21:47)
[2022-03-15] MEDS ORDERED: FENTANYL 500 MCG/10 ML VIAL 2,000 MCG in Sodium Chloride 0.9% 60 ML IV PRN (21:27)
[2022-03-15] MEDS ORDERED: Communication Order-Pharmacy FS SCH ×2 (21:30→22:00)
[2022-03-15 21:31] LABS: Chloride 100 mmol/L (98-107); Potassium 5.2 mmol/L (3.5-5.1); Sodium 126 mmol/L (136-145)
[2022-03-15 21:32] LABS: Calcium 8.3 mg/dL (7.8-10.44); Glucose 188 mg/dL (70-105)
[2022-03-15 21:34] LABS: Anion Gap 11 mmol/L (10-20); Carbon Dioxide 20 mmol/L (22-29)
[2022-03-15 21:35] LABS: Calc. Creatinine Clearance 0 mL/min (70-130); Estimated GFR 115
[2022-03-15 21:36] LABS: BUN (Urea Nitrogen) 5 mg/dL (7.0-18.7)
[2022-03-15 22:08] VITALS: BMI 24.7
[2022-03-15] MEDS: HYDROmorphone 10 mg/100 ml CADD IVPB PRN (22:23)
[2022-03-15] MEDS: Dextrose 5 %-0.45 % NaCl 1,000 ML IV PRN (22:32)
[2022-03-15 23:19] LABS: Glucose 150 mg/dL (70-105)
[2022-03-16 00:46] LABS: Glucose 142 mg/dL (70-105)
[2022-03-16 02:22] LABS: Glucose 160 mg/dL (70-105)
[2022-03-16] MEDS: Dextrose 5 %-0.45 % NaCl 1,000 ML IV PRN (02:45)
[2022-03-16 03:43] LABS: #Monocytes 0.4 thou/uL (0.11-0.59); #Neutrophils 8.7 thou/uL (1.40-6.50); %Basophils 0.1 % (0.0-1.0); %Eosinophils 0.1 % (0.0-10.0); %Lymphocytes 9.9 % (21.0-51.0); %Neutrophils 85.9 % (42.0-75.0); Hemoglobin 14.2 g/dL (12.0-16.0); Mean Corpuscular HGB CONC 39.8 g/dL (32.0-36.0); Mean Corpuscular Hemoglobin 33.7 pg (27.0-31.0); Mean Corpuscular Volume 84.5 fl (78.0-98.0); Mean Platelet Volume 8.7 fL (7.4-10.4); Platelet Count 161 10x3/uL (130-400); RBC Distribution Width 12.2 % (11.5-14.5); Red Blood Cell (RBC) Count 4.21 mill/uL (4.20-5.40); White Blood Cell (WBC) Count 10.2 10x3/uL (4.8-10.8)
[2022-03-16 03:57] LABS: Glucose 155 mg/dL (70-105)
[2022-03-16 04:10] LABS: ALT (SGPT) Less than 35 U/L (8-55)
[2022-03-16 04:35] LABS: Albumin 3.8 g/dL (3.5-5.0); Alkaline Phosphatase 52 U/L (40-110); Anion Gap 16 mmol/L (10-20); BUN (Urea Nitrogen) 9 mg/dL (7.0-18.7); Bilirubin, Total 0.8 mg/dL (0.2-1.2); Calc. Creatinine Clearance 138 mL/min (70-130); Calcium 7.2 mg/dL (7.8-10.44); Carbon Dioxide 15 mmol/L (22-29); Chloride 101 mmol/L (98-107); Estimated GFR 118; Globulin 5.8 g/dL (2.4-3.5); Glucose 128 mg/dL (70-105); Potassium 3.8 mmol/L (3.5-5.1); Protein, Total 9.6 g/dL (6.0-8.3); Sodium 128 mmol/L (136-145)
[2022-03-16 05:11] LABS: Glucose 150 mg/dL (70-105)
[2022-03-16 05:20] LABS: AST (SGOT) 28 U/L (5-34)
[2022-03-16] MEDS: Acetaminophen 325 MG TAB PO PRN ×2 (05:53→16:33)
[2022-03-16 06:07] LABS: Chloride 101 mmol/L (98-107); Glucose 141 mg/dL (70-105); Potassium 4.7 mmol/L (3.5-5.1); Sodium 126 mmol/L (136-145)
[2022-03-16 06:09] LABS: Anion Gap 15 mmol/L (10-20); Carbon Dioxide 15 mmol/L (22-29)
[2022-03-16 06:11] LABS: Calc. Creatinine Clearance 137 mL/min (70-130); Estimated GFR 117
[2022-03-16 06:12] LABS: BUN (Urea Nitrogen) 6 mg/dL (7.0-18.7)
[2022-03-16 06:26] LABS: Calcium 6.7 mg/dL (7.8-10.44)
[2022-03-16 06:27] LABS: Glucose 132 mg/dL (70-105)
[2022-03-16] MEDS ORDERED: Calcium Gluconate 4.6 MEQ in Sodium Chloride 0.9% 100 ML IVPB SCH (07:22)
[2022-03-16 07:33] LABS: Glucose 132 mg/dL (70-105)
[2022-03-16] MEDS ORDERED: CALCIUM GLUC 1 GM/NS 50 ML 1 GM in Premix Bag 1 BAG IVPB SCH (07:45)
[2022-03-16] MEDS: Enoxaparin Sodium 40 MG/0.4 ML SYRINGE SC SCH (08:36)
[2022-03-16] MEDS: Pantoprazole 40 MG VIAL IVP SCH (08:36)
[2022-03-16 09:00] LABS: Anion Gap 21 mmol/L (10-20); BUN (Urea Nitrogen) 6 mg/dL (7.0-18.7); Calc. Creatinine Clearance 144 mL/min (70-130); Calcium 6.7 mg/dL (7.8-10.44); Carbon Dioxide 10 mmol/L (22-29); Chloride 102 mmol/L (98-107); Estimated GFR 119; Glucose 112 mg/dL (70-105); Lipase 465 U/L (8-78); Potassium 4.3 mmol/L (3.5-5.1); Sodium 129 mmol/L (136-145)
[2022-03-16 10:10] LABS: Glucose 124 mg/dL (70-105)
[2022-03-16] MEDS: Sodium Bicarbonate 140 MEQ in Dextrose 5% in Water 1,000 ML IV SCH ×2 (10:18→16:33)
[2022-03-16 10:59] LABS: Glucose 111 mg/dL (70-105)
[2022-03-16] MEDS: Ketorolac Tromethamine 30 MG/ML VIAL IVP SCH ×3 (13:00→22:33)
[2022-03-16 13:07] LABS: Albumin 3.2 g/dL (3.5-5.0); Anion Gap 18 mmol/L (10-20); BUN (Urea Nitrogen) 5 mg/dL (7.0-18.7); Calc. Creatinine Clearance 135 mL/min (70-130); Calcium 7.4 mg/dL (7.8-10.44); Carbon Dioxide 13 mmol/L (22-29); Chloride 101 mmol/L (98-107); Estimated GFR 117; Glucose 87 mg/dL (70-105); Lipase 389 U/L (8-78); Potassium 3.4 mmol/L (3.5-5.1); Sodium 129 mmol/L (136-145)
[2022-03-16] MEDS ORDERED: Lactated Ringer's 1,000 ML IV SCH (13:15)
[2022-03-16] MEDS ORDERED: Potassium Chloride 20 MEQ TAB PO SCH (14:00)
[2022-03-16] MEDS ORDERED: Meropenem 1 GM in Sodium Chloride 0.9% 100 ML IVPB SCH (14:00)
[2022-03-16] MEDS: Potassium Chloride 20 MEQ in Premix Bag 1 BAG IVPB SCH ×2 (14:19→16:32)
[2022-03-16 14:40] LABS: Glucose 85 mg/dL (70-105)
[2022-03-16 16:47] LABS: Triglycerides 1559 mg/dL (Less than 150)
[2022-03-16 16:51] LABS: Anion Gap 18 mmol/L (10-20); BUN (Urea Nitrogen) 4 mg/dL (7.0-18.7); Calc. Creatinine Clearance 129 mL/min (70-130); Calcium 7.3 mg/dL (7.8-10.44); Carbon Dioxide 20 mmol/L (22-29); Chloride 99 mmol/L (98-107); Estimated GFR 116; Glucose 85 mg/dL (70-105); Sodium 133 mmol/L (136-145)
[2022-03-16 19:01] LABS: Glucose 83 mg/dL (70-105)
[2022-03-16 21:02] LABS: Glucose 85 mg/dL (70-105)
[2022-03-16] MEDS: HYDROmorphone 10 mg/100 ml CADD IVPB PRN (21:11)
[2022-03-16] MEDS: Meropenem 1 GM in Sodium Chloride 0.9% 100 ML IVPB SCH (22:37)
[2022-03-16 23:16] LABS: Glucose 83 mg/dL (70-105)
[2022-03-17] MEDS: Sodium Bicarbonate 140 MEQ in Dextrose 5% in Water 1,000 ML IV SCH ×2 (00:41→08:32)
[2022-03-17 01:17] LABS: Glucose 79 mg/dL (70-105)
[2022-03-17 02:30] LABS: Glucose 85 mg/dL (70-105)
[2022-03-17] MEDS: Ketorolac Tromethamine 30 MG/ML VIAL IVP SCH ×5 (04:24→21:26)
[2022-03-17 04:51] LABS: #Eosinphils 0.1 thou/uL (0.0-0.7); #Lymphocytes 0.9 thou/uL (1.20-3.40); #Monocytes 0.4 thou/uL (0.11-0.59); #Neutrophils 5.9 thou/uL (1.40-6.50); %Eosinophils 1.7 % (0.0-10.0); %Lymphocytes 12.9 % (21.0-51.0); %Monocytes 4.9 % (0.0-10.0); %Neutrophils 80.4 % (42.0-75.0); Hemoglobin 10.7 g/dL (12.0-16.0); Mean Corpuscular HGB CONC 34.6 g/dL (32.0-36.0); Mean Corpuscular Hemoglobin 30.6 pg (27.0-31.0); Mean Corpuscular Volume 88.3 fl (78.0-98.0); Mean Platelet Volume 8.3 fL (7.4-10.4); Platelet Count 111 10x3/uL (130-400); RBC Distribution Width 12.4 % (11.5-14.5); Red Blood Cell (RBC) Count 3.49 mill/uL (4.20-5.40); White Blood Cell (WBC) Count 7.3 10x3/uL (4.8-10.8)
[2022-03-17] MEDS: Meropenem 1 GM in Sodium Chloride 0.9% 100 ML IVPB SCH ×3 (05:15→21:26)
[2022-03-17 05:16] LABS: Lipase 204 U/L (8-78)
[2022-03-17 05:24] LABS: Triglycerides 1122 mg/dL (Less than 150)
[2022-03-17 05:34] LABS: ALT (SGPT) 17 U/L (8-55); AST (SGOT) 22 U/L (5-34); Alkaline Phosphatase 49 U/L (40-110); Anion Gap 14 mmol/L (10-20); BUN (Urea Nitrogen) 4 mg/dL (7.0-18.7); Bilirubin, Total 0.8 mg/dL (0.2-1.2); Calc. Creatinine Clearance 136 mL/min (70-130); Calcium 7.3 mg/dL (7.8-10.44); Carbon Dioxide 24 mmol/L (22-29); Chloride 100 mmol/L (98-107); Estimated GFR 117; Globulin 3.2 g/dL (2.4-3.5); Glucose 105 mg/dL (70-105); Potassium 3.5 mmol/L (3.5-5.1); Protein, Total 6.2 g/dL (6.0-8.3); Sodium 134 mmol/L (136-145)
[2022-03-17] MEDS ORDERED: Potassium Chloride 20 MEQ TAB PO SCH (06:15)
[2022-03-17 07:00] LABS: Glucose 98 mg/dL (70-105)
[2022-03-17] MEDS: Pantoprazole 40 MG VIAL IVP SCH (08:33)
[2022-03-17] MEDS: Enoxaparin Sodium 40 MG/0.4 ML SYRINGE SC SCH (08:33)
[2022-03-17 10:39] LABS: Glucose 118 mg/dL (70-105)
[2022-03-17] MEDS: Sodium Bicarbonate 50 MEQ in Dextrose 5 %-0.45 % NaCl 1,000 ML IV SCH ×3 (10:40→22:57)
[2022-03-17] MEDS: Ondansetron PF 4 MG/2 ML Vial IVP PRN ×2 (12:21→19:32)
[2022-03-18] MEDS: Ketorolac Tromethamine 30 MG/ML VIAL IVP SCH ×4 (03:33→23:48)
[2022-03-18 04:42] LABS: #Eosinphils 0.1 thou/uL (0.0-0.7); #Lymphocytes 1.2 thou/uL (1.20-3.40); #Monocytes 0.3 thou/uL (0.11-0.59); #Neutrophils 4.4 thou/uL (1.40-6.50); %Basophils 0.4 % (0.0-1.0); %Eosinophils 2.1 % (0.0-10.0); %Lymphocytes 19.4 % (21.0-51.0); %Monocytes 5.6 % (0.0-10.0); %Neutrophils 72.5 % (42.0-75.0); Hemoglobin 9.5 g/dL (12.0-16.0); Mean Corpuscular HGB CONC 34.2 g/dL (32.0-36.0); Mean Corpuscular Hemoglobin 30.4 pg (27.0-31.0); Mean Corpuscular Volume 88.9 fl (78.0-98.0); Mean Platelet Volume 8.3 fL (7.4-10.4); Platelet Count 113 10x3/uL (130-400); RBC Distribution Width 12.2 % (11.5-14.5); Red Blood Cell (RBC) Count 3.11 mill/uL (4.20-5.40); White Blood Cell (WBC) Count 6.1 10x3/uL (4.8-10.8)
[2022-03-18 05:10] LABS: ALT (SGPT) 9 U/L (8-55); AST (SGOT) 12 U/L (5-34); Alkaline Phosphatase 49 U/L (40-110); Anion Gap 9 mmol/L (10-20); BUN (Urea Nitrogen) Less than 4 mg/dL (7.0-18.7); Bilirubin, Total 0.7 mg/dL (0.2-1.2); Calc. Creatinine Clearance 146 mL/min (70-130); Calcium 7.8 mg/dL (7.8-10.44); Carbon Dioxide 25 mmol/L (22-29); Chloride 106 mmol/L (98-107); Estimated GFR 119; Globulin 2.8 g/dL (2.4-3.5); Glucose 103 mg/dL (70-105); Lipase 78 U/L (8-78); Potassium 3.1 mmol/L (3.5-5.1); Protein, Total 5.8 g/dL (6.0-8.3); Sodium 137 mmol/L (136-145)
[2022-03-18] MEDS: Sodium Bicarbonate 50 MEQ in Dextrose 5 %-0.45 % NaCl 1,000 ML IV SCH ×2 (05:40→18:28)
[2022-03-18] MEDS: Meropenem 1 GM in Sodium Chloride 0.9% 100 ML IVPB SCH ×3 (07:09→23:38)
[2022-03-18] MEDS ORDERED: Potassium Chloride 20 MEQ TAB PO SCH (08:00)
[2022-03-18] MEDS: Acetaminophen 325 MG TAB PO PRN (08:51)
[2022-03-18] MEDS: Pantoprazole 40 MG VIAL IVP SCH (08:51)
[2022-03-18] MEDS: Enoxaparin Sodium 40 MG/0.4 ML SYRINGE SC SCH (08:51)
[2022-03-18] MEDS: Potassium Chloride 20 MEQ in Premix Bag 1 BAG IVPB SCH ×2 (08:51→10:51)
[2022-03-18] MEDS ORDERED: HYDROcodone/Acetaminophen 10/325 mg Tablet PO SCH (10:15)
[2022-03-18] MEDS: Ondansetron PF 4 MG/2 ML Vial IVP PRN (10:40)
[2022-03-18] MEDS ORDERED: FENTANYL 50 MCG/ML 1 ML VIAL SLOW IVP PRN (13:16)
[2022-03-18] MEDS ORDERED: HYDROcodone/Acetaminophen 10/325 mg Tablet PO PRN ×2 (13:17)
[2022-03-18] MEDS ORDERED: Fioricet 325/50/40 mg Tablet PO PRN (15:03)
[2022-03-18] MEDS: Atorvastatin Calcium 40 MG TAB PO SCH (23:39)
[2022-03-19] MEDS: Meropenem 1 GM in Sodium Chloride 0.9% 100 ML IVPB SCH ×3 (06:33→22:33)
[2022-03-19] MEDS: Ketorolac Tromethamine 30 MG/ML VIAL IVP SCH ×4 (06:33→22:39)
[2022-03-19] MEDS: Pantoprazole 40 MG VIAL IVP SCH (09:05)
[2022-03-19] MEDS: Gemfibrozil 600 MG TAB PO SCH ×2 (09:05→17:06)
[2022-03-19] MEDS: Enoxaparin Sodium 40 MG/0.4 ML SYRINGE SC SCH (09:05)
[2022-03-19] MEDS: Fenofibrate Nanocrystallized 145 MG TAB PO SCH (09:05)
[2022-03-19 09:32] LABS: #Eosinphils 0.2 thou/uL (0.0-0.7); #Lymphocytes 1.3 thou/uL (1.20-3.40); #Monocytes 0.3 thou/uL (0.11-0.59); #Neutrophils 2.2 thou/uL (1.40-6.50); %Basophils 0.2 % (0.0-1.0); %Eosinophils 4.2 % (0.0-10.0); %Lymphocytes 32.8 % (21.0-51.0); %Neutrophils 55.7 % (42.0-75.0); Hemoglobin 9.4 g/dL (12.0-16.0); Mean Corpuscular HGB CONC 34.8 g/dL (32.0-36.0); Mean Corpuscular Hemoglobin 30.6 pg (27.0-31.0); Mean Corpuscular Volume 87.8 fl (78.0-98.0); Mean Platelet Volume 7.5 fL (7.4-10.4); Platelet Count 140 10x3/uL (130-400); RBC Distribution Width 12.2 % (11.5-14.5); Red Blood Cell (RBC) Count 3.06 mill/uL (4.20-5.40)
[2022-03-19 09:57] LABS: ALT (SGPT) 12 U/L (8-55); AST (SGOT) 12 U/L (5-34); Albumin 3.1 g/dL (3.5-5.0); Alkaline Phosphatase 47 U/L (40-110); Anion Gap 10 mmol/L (10-20); BUN (Urea Nitrogen) 8 mg/dL (7.0-18.7); Bilirubin, Total 0.6 mg/dL (0.2-1.2); Calc. Creatinine Clearance 136 mL/min (70-130); Calcium 8.6 mg/dL (7.8-10.44); Carbon Dioxide 26 mmol/L (22-29); Chloride 105 mmol/L (98-107); Estimated GFR 117; Glucose 107 mg/dL (70-105); Potassium 3.5 mmol/L (3.5-5.1); Protein, Total 6.1 g/dL (6.0-8.3); Sodium 137 mmol/L (136-145); Triglycerides 527 mg/dL (Less than 150)
[2022-03-19] MEDS ORDERED: Potassium Chloride 20 MEQ TAB PO SCH (10:15)
[2022-03-19] MEDS: Atorvastatin Calcium 40 MG TAB PO SCH (22:39)
[2022-03-20] MEDS: Ketorolac Tromethamine 30 MG/ML VIAL IVP SCH (05:02)
[2022-03-20] MEDS: Meropenem 1 GM in Sodium Chloride 0.9% 100 ML IVPB SCH ×2 (05:03→14:36)
[2022-03-20] MEDS: Gemfibrozil 600 MG TAB PO SCH (06:46)
[2022-03-20] MEDS: Fenofibrate Nanocrystallized 145 MG TAB PO SCH (09:12)
[2022-03-20] MEDS: Pantoprazole 40 MG VIAL IVP SCH (09:13)
[2022-03-20] MEDS: Enoxaparin Sodium 40 MG/0.4 ML SYRINGE SC SCH (09:13)
[2022-03-20 13:35] VITALS: BP 111/74; TEMP 98
== END 2022-03-20 13:28 | disposition home or self-care (01) | DRG 439 ==
LOC: ERS 13:15 → IMCU/EMU 18:27 → SJJU 03-19 14:00
PROVIDERS: ADMIT Family Medicine; ATTEND Internal Medicine
DX: K85.90 Acute pancreatitis without necrosis or infection, unspecified (principal); E87.1 Hypo-osmolality and hyponatremia; E87.20 Acidosis, unspecified; E78.1 Pure hyperglyceridemia; Z20.822 Contact with and (suspected) exposure to COVID-19; K21.9 Gastro-esophageal reflux disease without esophagitis; D64.9 Anemia, unspecified; E87.6 Hypokalemia; E11.9 Type 2 diabetes mellitus without complications; E83.51 Hypocalcemia; Z90.49 Acquired absence of other specified parts of digestive tract; Z90.710 Acquired absence of both cervix and uterus; Z79.899 Other long term (current) drug therapy; Z79.82 Long term (current) use of aspirin
CPT/HCPCS: 36415; 36416; 74177; 80053; 80306; 81003; 83605; 83690; 84478; 84703; 85025; 96361; 96374; 96375; 96376; C9113; J0610; J1170; J1650; J1815; J1885; J2185; J2270; J2405; J3480; J3490; J7042; J7070; J7999; Q9967; U0003; U0005